=== PATIENT | female | born 1975 | race Caucasian/White ===

== ENCOUNTER 2016-08-17 09:41 | Inpatient (IN) | payer MEDICAID ==
[~2016-08-17] VITALS: Ht 165.1 cm; Wt 93.9 kg
[2016-08-17 09:59] VITALS: BP 134/91; PULSE 75; Ht 165.1 cm; Wt 93.9 kg
[2016-08-17] MEDS ORDERED: PRENAT PO (10:01)
[2016-08-17 10:25] LABS: ADD SCAN DIFF NO
[2016-08-17 10:29] LABS: BASOPHILS % 0.4 % (0.0-2.0); EOSINOPHILS # 0.1 10^3/ul (0.0-0.5); EOSINOPHILS % 1.3 % (0.0-7.0); HEMATOCRIT 32.5 % (37.0-47.0); HEMOGLOBIN 11.5 g/dl (12.0-16.0); LYMPHOCYTES # 1.5 10^3/ul (0.8-2.9); LYMPHOCYTES % 20.1 % (15.0-51.0); MEAN CORPUSCULAR HGB CONC 35.4 g/dl (32.0-37.0); MEAN CORPUSCULAR VOLUME 90.5 fl (82.0-101.0); MONOCYTE # 0.4 10^3/ul (0.3-0.9); MONOCYTES % 5.6 % (0.0-11.0); NEUTROPHIL # 5.5 10^3/ul (1.6-7.5); NEUTROPHILS % 71.9 % (39.0-77.0); PLATELET COUNT 248 10^3/UL (140-415); RED BLOOD COUNT 3.59 10^6/ul (4.20-5.40); RED CELL DISTRIBUTION WIDTH 13.3 % (11.5-14.5); WHITE BLOOD COUNT 7.7 10^3/ul (4.8-10.8)
[2016-08-17 10:32] LABS: ADD UMIC YES; UR ASCORBIC ACID 20 mg/dL (NEGATIVE); UR BACTERIA FEW /HPF (NONE SEEN); UR BILIRUBIN (Dip) NEGATIVE (NEGATIVE); UR BLOOD (Dip) 1+ mg/dL (NEGATIVE); UR CLARITY CLOUDY (CLEAR); UR COLOR AMBER (YELLOW); UR GLUCOSE (Dip) NEGATIVE (NEGATIVE); UR KETONES (Dip) NEGATIVE (NEGATIVE); UR LEUKOCYTE ESTERASE (Dip) 3+ Leu/ul (NEGATIVE); UR MUCUS MANY /HPF (NONE SEEN); UR NITRITE (Dip) NEGATIVE (NEGATIVE); UR RBC 3 /HPF (0-5); UR SPECIFIC GRAVITY (Dip) 1.023 (1.003-1.030); UR SQUAMOUS EPITHELIAL CELL MANY /HPF (FEW); UR TOTAL PROTEIN (Dip) 1+ mg/dl (NEGATIVE); UR UROBILINOGEN (Dip) NEGATIVE (NEGATIVE)
[2016-08-17 10:44] LABS: ALBUMIN 4.1 g/dl (3.3-4.9); ALBUMIN/GLOBULIN RATIO 1.41; BILIRUBIN,INDIRECT 0.2 mg/dl (0-1.1); BILIRUBIN,TOTAL 0.2 mg/dl (0.2-1.3); CALCIUM 9.7 mg/dl (8.4-10.2); CREATININE 0.62 mg/dl (0.44-1.00); POTASSIUM 3.6 mmol/L (3.5-5.1); URIC ACID 6.1 mg/dl (3.1-7.9)
[2016-08-17 10:47] LABS: INR 0.92; PARTIAL THROMBOPLASTIN TIME 27.6 Sec (25.0-35.0); PROTIME 12.4 Sec (12.2-14.2)
--- NOTE | 2016-08-17 11:41 | RADRPT ---
PROCEDURE: US OB biophysical profile. CLINICAL INDICATION: evaluation TECHNIQUE: Multiple sonographic images of the pelvis were obtained. The images were reviewed on a PACS workstation. COMPARISON: No prior studies are available for comparison. FINDINGS: There is a single viable intrauterine gestation. Cardiac activity is present with 134 beats per min micheal. There is a vertex presentation. The placenta is anterior. There is no evidence of placental abruption. There is a normal amount of amniotic fluid with an ROXIE = 10.0 cm. Biophysical profile: movement 2/2 tone 2/2. breathing 2/2 ROXIE 2/2 Total 10/03 RPTAT: AA . IMPRESSION: Normal biophysical profile. Physician Rom Date Time Electronically viewed and signed by Physician Rom on 08/17/2016 11:41 /
--- NOTE | 2016-08-17 12:39 | HP ---
Date/Time of Note Date/Time of Note DATE: 08/17/16 TIME: 12:20 OB - History Hx of Present Free Text/Dictation 41 years old female 4 para 3 EDC of October 06, 2016 32 weeks6/7 days has been evaluated in the triage unit to rule out - induced hypertension her blood pressures running 136/77 the highest 144/92 she has no complaint of headache blurry vision epigastric pain, her laboratory work , CMP, liver enzyme are within normal uric acid 6. platelet 248,000 ,urine 1+ protein 3+ leukocyte esterase WBC 10 ,her biophysical profile 10/03 with ROXIE 10 she is being admitted to the antepartum unit for further evaluation and treatment for suspected -induced hypertension 24 hours urine collection for protein and creatinine clearance ordered This patient has been under the care of the [facility] the only pertinent finding in her record, during the last 2 visit blood pressure running 130s over 80 which was higher then earlier visit Chief Complaint: Workup for PIH Estimated Due Date: Oct 06, 2016 : 4 Para: 3 Care: Good Care Ultrasounds: Normal mid trimester US Obstetrical Complications: Gestational Hypertension Medical Complications: None Past Family/Social History * Past Medical, Surgical, Family and Obstetric Histories reviewed from chart. Rubella: immune RPR/VDRL: Negative GBS Status: Unknown HBsAG: Negative OB Admission Exam Vital Signs Vital Signs Vital Signs Date Time Temp Pulse Resp B/P Pulse Ox O2 Delivery O2 Flow Rate FiO2 08/17/16 09:59 98.4 75 134/91 Physical Exam HEENT: WNL Heart: Rhythm Normal Lungs: Clear, Equal Abdomen: WNL Extremities: Normal Reflexes: Normal Cervical Dilatation: None Heart Rate: 130's Accelerations: Accelerations Present Last 72 hours Lab Results CBC & BMP 08/17/16 10:10 Liver Function Test 08/17/16 10:10 Alanine Aminotransferase (ALT/SGPT) 31 Albumin 4.1 Alkaline Phosphatase 131 H Aspartate Amino Transf (AST/SGOT) 26 Direct Bilirubin 0.00 Total Protein 7.0 OB Assessment/Plan Reason for admission: other (Suspected -induced hypertension ) Plan: Expectant Management, Other (Workup to rule out -induced) ANALI DOBBINS MD Aug 17, 2016 12:32
[2016-08-17 13:32] LABS: ADD UMIC NO; UR ASCORBIC ACID NEGATIVE (NEGATIVE); UR BILIRUBIN (Dip) NEGATIVE (NEGATIVE); UR BLOOD (Dip) NEGATIVE (NEGATIVE); UR CLARITY SLIGHTLY CLOUDY (CLEAR); UR COLOR YELLOW (YELLOW); UR GLUCOSE (Dip) NEGATIVE (NEGATIVE); UR KETONES (Dip) NEGATIVE (NEGATIVE); UR LEUKOCYTE ESTERASE (Dip) NEGATIVE Leu/ul (NEGATIVE); UR MUCUS FEW /HPF (NONE SEEN); UR NITRITE (Dip) NEGATIVE (NEGATIVE); UR RBC 4 /HPF (0-5); UR SPECIFIC GRAVITY (Dip) 1.018 (1.003-1.030); UR SQUAMOUS EPITHELIAL CELL FEW /HPF (FEW); UR TOTAL PROTEIN (Dip) NEGATIVE (NEGATIVE); UR UROBILINOGEN (Dip) NEGATIVE (NEGATIVE)
[2016-08-17] MEDS: AL HYDROX/MG HYDROX/SIMETH 30 ML CUP PO PRN ×2 (15:55→21:36)
[2016-08-18] MEDS: AL HYDROX/MG HYDROX/SIMETH 30 ML CUP PO PRN (08:53)
[2016-08-18] MEDS: MULTIVIT/MIN/FOLATE/IRON/PREN TAB PO SCH (08:53)
[2016-08-18 14:01] LABS: SCRET 0.62 mg/dl (0.44-1.00)
--- NOTE | 2016-08-18 14:06 | PERINOTE ---
Date/Time of Note Date/Time of Note DATE: 08/18/16 TIME: 13:50 Assessment/Recommendations Other Assessments IUP New onset hypertension in , with one severe-range BP. Recommendations: Would obtain an ultrasound for growth given maternal hypertension Awaiting 24 hour urine results If the patient has another severe-range BP (above 160 or above 110), she meets case definition of severe disease. Then: Could consider labetalol 200mg PO BID to prevent severe BPs Would repeat blood work every 1-2 days Would deliver earlier for evidence of maternal organ involvement (other severe features), intolerance Would consider delivery at 34 weeks if stable until that time If the patient does not meet criteria for severe, would deliver at 37 weeks GA. Would follow with labs weekly. If she is discharged I would repeat the labs weekly OB Subjective Free Text/Dictaton Patient admitted due to elevated BP. Blood work in the hospital has been normal , 24 hour urine for protein is pending. BP: --at first Ob visit was 119/78 --Highest 163/95, 141/98 --current 141/97 HD# 2 IUP @ 32W5D Complaints/Overnight events Denies headache, visual changes, abdominal or chest pain Current Medications Current Medications Al Hydrox/Mg Hydrox/Simethicone (Mag-Al Plus) 30 ml Q4H PRN PO GASTROINTESTINAL UPSET Last administered on 08/18/16 08:53; Admin Dose 30 ML; Start 08/17/16 at 16:00 Acetaminophen (Tylenol Tab) 650 mg Q4H PRN PO PAIN AND OR ELEVATED TEMP; Start 08/17/16 at 16:00 Prenat Multivit/ Supply Chain Vice President/Iron/Folic Ac ( S) 1 tab DAILY PO Last administered on 08/18/16 08:53; Admin Dose 1 TAB; Start 08/18/16 at 09:00 Past Medical History Medical History: no pertinent history Surgical History: no surgical history [employer] History: no pertinent [employer] TE[employer]ER history Para: 3 : 4 LMP (Females 10-50): Family History Significant Family History: no pertinent family hx Social History Smoker: non-smoker (Note that papers state that patient is a smoker) Alcohol: none Drugs: none OB Admission Exam Physical Exam Vitals: Vital Signs Date Time Temp Pulse Resp B/P Pulse Ox O2 Delivery O2 Flow Rate FiO2 08/17/16 09:59 98.4 75 134/91 Heart: Rhythm Normal Lungs: Clear Abdomen: WNL Extremities: Normal Reflexes: Normal Heart Rate: 130's Accelerations: Accelerations Present Decelerations: No Decelerations Varibility: Moderate Contractions on Admission: None Last 72 hours Lab Results CBC & BMP 08/17/16 10:10 Liver Function Test 08/17/16 10:10 Alanine Aminotransferase (ALT/SGPT) 31 Albumin 4.1 Alkaline Phosphatase 131 H Aspartate Amino Transf (AST/SGOT) 26 Direct Bilirubin 0.00 Total Protein 7.0 Copies To: CC: ANALI DOBBINS MD, MARIE H MD Aug 18, 2016 14:05
--- NOTE | 2016-08-18 16:25 | RADRPT ---
PROCEDURE: Obstetrical ultrasound CLINICAL INDICATION: CHRONIC HTN TECHNIQUE: Multiple sonographic images of the pelvis were obtained. The images were reviewed on a PACS workstation. COMPARISON: Obstetrical ultrasound from 08/17/2016 FINDINGS: The cervix is not well visualized. There is a single viable intrauterine gestation. Cardiac activity is present with 141 beats per minute. There is a vertex presentation. The placenta is anterior. There is no evidence for an abruption or placenta previa. There is a subjectively normal amount of amniotic fluid. Measurements were made in order to determine age. The results are as follows (cm): BPD =8.37 HC =29.39 AC =29.74 FL =6.53 Estimated gestational age by ultrasound of approximately 33 weeks, 3 days. The estimated date of delivery by ultrasound is 10/03/2016. Estimated gestational age by LMP of approximately 33 weeks, 0 days. The estimated date of delivery by LMP is 10/06/2016. EFW = 2223 grams (58th percentile) IMPRESSION: Single viable intrauterine gestation of approximately 33 weeks, 3 days . The estimated date of delivery is 10/03/2016 . Dating by ultrasound is within 3 days of dating by LMP. Cephalic presentation. Estimated weight is in the 58 percentile. Anterior placenta without evidence of an abruption. RPTAT: EE Physician Rom Date Time Electronically viewed and signed by Physician Rom on 08/18/2016 16:24 RA/
--- NOTE | 2016-08-18 17:36 | QN ---
Documentation Comment Afebrile patient resting in bed no complaint of headache blurry vision or epigastric pain her blood pressure has been running in the 150s over 90s has been seen by the perinatology recommended labetalol 200 mg twice a day her imaging report indicates normal weight for gestational age no sign of IUGR will continue close observation with repeat PIH panel for the morning, 24 hours urine collection for protein report, total protein was 399 that qualifies her for -induced hypertension superimposed chronic hypertension. ANALI DOBBINS MD Aug 18, 2016 17:36
[2016-08-18] MEDS: LABETALOL 200 MG TAB PO SCH (20:44)
[2016-08-19 07:44] LABS: ALBUMIN/GLOBULIN RATIO 1.37; BILIRUBIN,INDIRECT 0.3 mg/dl (0-1.1); BILIRUBIN,TOTAL 0.3 mg/dl (0.2-1.3); CALCIUM 9.5 mg/dl (8.4-10.2); CREATININE 0.69 mg/dl (0.44-1.00); POTASSIUM 3.9 mmol/L (3.5-5.1); TOTAL PROTEIN 6.9 g/dl (6.1-8.1)
[2016-08-19] MEDS: LABETALOL 200 MG TAB PO SCH ×2 (09:02→20:47)
[2016-08-19] MEDS: MULTIVIT/MIN/FOLATE/IRON/PREN TAB PO SCH (09:02)
--- NOTE | 2016-08-19 10:22 | QN ---
Documentation Comment Resting in bed blood pressure 116/67 she is on labetalol 200 mg twice daily, no complaint of headache blurry vision epigastric will continue present treatment if blood pressure stays within this range considering a.m. discharge ANALI DOBBINS MD Aug 19, 2016 10:22
[2016-08-19] MEDS: ACETAMINOPHEN 325 MG TAB PO PRN ×2 (10:31→18:10)
[2016-08-19] MEDS: PANTOPRAZOLE (EC) 40 MG TAB PO SCH (10:35)
--- NOTE | 2016-08-19 15:39 | PERINOTE ---
Date/Time of Note Date/Time of Note DATE: 08/19/16 TIME: 15:33 Assessment/Recommendations Other Assessments Intrauterine at 33 weeks and 1 day of gestation Elevated blood pressures likely due to preeclampsia, without severe features at this time Recommendations: I would treat this woman as preeclampsia without severe features, including testing twice weekly and weekly evaluations of her preeclampsia laboratory values. I would deliver her at 37 weeks of gestation, earlier if or maternal issues arise OB Subjective Free Text/Dictaton The patient is admitted with elevated blood pressures in the clinic, for consideration of possible preeclampsia HD# 3 IUP @ 33W1D Complaints/Overnight events Patient's current blood pressure is 117/63, maximum blood pressure in the last 24 hours 152/102. The patient denies headache visual changes chest or abdominal pain. Ultrasound performed in this admission reveals an estimated weight of 2223 g which is 15th percentile for gestational age. 24-hour urine protein excretion was elevated at 399 mg in 24-hour period of a laboratory evaluation is unremarkable. Current Medications Current Medications Al Hydrox/Mg Hydrox/Simethicone (Mag-Al Plus) 30 ml Q4H PRN PO GASTROINTESTINAL UPSET Last administered on 08/18/16 08:53; Admin Dose 30 ML; Start 08/17/16 at 16:00 Acetaminophen (Tylenol Tab) 650 mg Q4H PRN PO PAIN AND OR ELEVATED TEMP Last administered on 08/19/16 10:31; Admin Dose 650 MG; Start 08/17/16 at 16:00 Prenat Multivit/ Supervisor Gelatin Plant/Iron/Folic Ac ( S) 1 tab DAILY PO Last administered on 08/19/16 09:02; Admin Dose 1 TAB; Start 08/18/16 at 09:00 Labetalol HCl (Normodyne) 200 mg BID PO Last administered on 08/19/16 09:02; Admin Dose 200 MG; Start 08/18/16 at 21:00 Pantoprazole (Protonix Tab) 40 mg DAILY@06 PO Last administered on 08/19/16 10 :35; Admin Dose 40 MG; Start 08/19/16 at 11:00 OB Admission Exam Physical Exam Vitals: Vital Signs Date Time Temp Pulse Resp B/P Pulse Ox O2 Delivery O2 Flow Rate FiO2 08/17/16 09:59 98.4 75 134/91 Heart Rate: 130's Accelerations: Accelerations Present Decelerations: No Decelerations Varibility: Moderate Contractions on Admission: None Last 72 hours Lab Results CBC & BMP 08/17/16 10:10 08/19/16 06:01 Liver Function Test 08/17/16 10:10 08/19/16 06:01 Alanine Aminotransferase (ALT/SGPT) 31 36 Albumin 4.1 4.0 Alkaline Phosphatase 131 H 135 H Aspartate Amino Transf (AST/SGOT) 26 30 Direct Bilirubin 0.00 0.00 Total Protein 7.0 6.9 Copies To: CC: ANALI DOBBINS MD, MARIE H MD Aug 19, 2016 15:39
[2016-08-19] MEDS: AL HYDROX/MG HYDROX/SIMETH 30 ML CUP PO PRN (18:13)
[2016-08-20] MEDS: PANTOPRAZOLE (EC) 40 MG TAB PO SCH (06:35)
[2016-08-20] MEDS: LABETALOL 200 MG TAB PO SCH (09:09)
[2016-08-20] MEDS: MULTIVIT/MIN/FOLATE/IRON/PREN TAB PO SCH (09:09)
--- NOTE | 2016-08-20 11:14 | PDOCDIS ---
Discharge Instructions CONDITION Patient Condition: Good HOME CARE INSTRUCTIONS: Diet Instructions: Reduced Sodium ACTIVITY: Activity Restrictions: Rest between Activity No Sexual Activity Bathing Restrictions: ShowerActivity Restrictions Comment: More bedrest low- salt diet appointment office in 2 day FOLLOW UP/APPOINTMENTS Follow-up Plan Patient is being discharged home with prescription of Procardia 20mg every 6 hours to make appointment to be seen in the office in 2 days ANALI DOBBINS MD Aug 20, 2016 11:14
--- NOTE | 2016-08-20 11:32 | DS ---
Date/Time of Note Date/Time of Note DATE: 08/20/16 TIME: 11:22 Discharge Summary Admission/Discharge Info Admit Date/Time Aug 17, 2016 at 12:20 Discharge Date/Time August 20, 2016 at 1155 Discharge Diagnosis 35 weeks and 2 days diagnosed with mild preeclampsia suggested by the perinatology follow-up as outpatient at the time of discharge her blood pressures were 108/68 120/73 and the last blood pressure taken at 1130 was 116/ 75 she is taking labetalol 200 mg twice daily will be discharged home with a prescription of labetalol 200 mg twice daily and requested to make appointment to be seen at the office in 2 days Patient Condition: Good Procedures Treatment for mild -induced hypertension Hx of Present Illness 35 weeks 2 days complicated with mild preeclampsia Hospital Course Satisfactory responded well to the treatment Home Meds Reported Medications Multivit/Min/Fol Ac/Iron/Pren* ( S*) 1 Tab Tab, 1 TAB PO DAILY, TAB 08/17/16 Follow-up Plan To continue taking labetalol 200 mg twice daily to make appointment to be seen in the office in 2 days Primary Care Provider Care Physician No Primary Time spent on discharge: < 30 minutes ANALI DOBBINS MD Aug 20, 2016 11:32
== END 2016-08-20 12:02 | disposition home or self-care (01) | DRG 781 ==
LOC: OBT 09:41 → L-D 09:42 → OBG 12:20 → OBT 12:20
PROVIDERS: ADMIT Obstetrics & Gynecology; ATTEND Obstetrics & Gynecology
DX: O14.03 Mild to moderate pre-eclampsia, third trimester (principal); Z3A.35 35 weeks gestation of pregnancy
CPT/HCPCS: 36415; 76815; 76818; 80053; 81001; 81003; 82575; 84156; 84560; 85025; 85384; 85610; 85730; 87086; G0463

== ENCOUNTER 2016-09-06 16:00 | Inpatient (IN) | payer MEDICAID ==
[~2016-09-06] VITALS: Ht 165.1 cm; Wt 93.2 kg
[~2016-09-06 16:00] MED LIST: PRENAT PO
[2016-09-06 16:32] VITALS: Ht 165.1 cm; Wt 93.2 kg
[2016-09-06 16:33] VITALS: BP 136/85; PULSE 69; RESP 16
[2016-09-06] MEDS ORDERED: LABE100T3 PO (16:35)
[2016-09-06 17:12] LABS: ADD SCAN DIFF NO
[2016-09-06 17:14] LABS: BASOPHILS % 0.5 % (0.0-2.0); EOSINOPHILS # 0.1 10^3/ul (0.0-0.5); EOSINOPHILS % 1.4 % (0.0-7.0); HEMOGLOBIN 11.3 g/dl (12.0-16.0); LYMPHOCYTES # 1.6 10^3/ul (0.8-2.9); LYMPHOCYTES % 24.1 % (15.0-51.0); MEAN CORPUSCULAR HEMOGLOBIN 31.7 pg (29.0-33.0); MEAN CORPUSCULAR HGB CONC 34.2 g/dl (32.0-37.0); MEAN CORPUSCULAR VOLUME 92.4 fl (82.0-101.0); MEAN PLATELET VOLUME 11.4 fl (7.4-10.4); MONOCYTE # 0.5 10^3/ul (0.3-0.9); MONOCYTES % 7.8 % (0.0-11.0); NEUTROPHIL # 4.3 10^3/ul (1.6-7.5); NEUTROPHILS % 65.7 % (39.0-77.0); PLATELET COUNT 218 10^3/UL (140-415); RED BLOOD COUNT 3.57 10^6/ul (4.20-5.40); RED CELL DISTRIBUTION WIDTH 13.5 % (11.5-14.5); WHITE BLOOD COUNT 6.6 10^3/ul (4.8-10.8)
[2016-09-06 17:31] LABS: INR 0.91; PARTIAL THROMBOPLASTIN TIME 27.6 Sec (25.0-35.0); PROTIME 12.2 Sec (12.2-14.2)
[2016-09-06 17:36] LABS: ALBUMIN/GLOBULIN RATIO 1.29; BILIRUBIN,INDIRECT 0.2 mg/dl (0-1.1); BILIRUBIN,TOTAL 0.2 mg/dl (0.2-1.3); CALCIUM 10.2 mg/dl (8.4-10.2); CREATININE 0.65 mg/dl (0.44-1.00); POTASSIUM 3.9 mmol/L (3.5-5.1); TOTAL PROTEIN 7.1 g/dl (6.1-8.1); URIC ACID 6.5 mg/dl (3.1-7.9)
[2016-09-06 18:45] LABS: ADD UMIC YES; UR ASCORBIC ACID 20 mg/dL (NEGATIVE); UR BILIRUBIN (Dip) NEGATIVE (NEGATIVE); UR BLOOD (Dip) NEGATIVE (NEGATIVE); UR CLARITY SLIGHTLY CLOUDY (CLEAR); UR COLOR YELLOW (YELLOW); UR GLUCOSE (Dip) NEGATIVE (NEGATIVE); UR KETONES (Dip) NEGATIVE (NEGATIVE); UR LEUKOCYTE ESTERASE (Dip) 2+ Leu/ul (NEGATIVE); UR NITRITE (Dip) NEGATIVE (NEGATIVE); UR RBC 1 /HPF (0-5); UR SPECIFIC GRAVITY (Dip) 1.021 (1.003-1.030); UR SQUAMOUS EPITHELIAL CELL FEW /HPF (FEW); UR TOTAL PROTEIN (Dip) 1+ mg/dl (NEGATIVE); UR UROBILINOGEN (Dip) NEGATIVE (NEGATIVE)
[2016-09-06] MEDS ORDERED: LACTATED RINGER'S 1,000 ML IV* SCH (19:00)
[2016-09-06] MEDS: BETAMET NA PHOS/AC(6 MG/ML) 5ML INJ IM SCH (19:04)
[2016-09-06] MEDS ORDERED: MAGNESIUM SULFATE 4 GM/100 ML 100 ML ONE (20:01)
[2016-09-06] MEDS ORDERED: LABETALOL HCL 20MG INJ ONE (20:01)
--- NOTE | 2016-09-06 20:07 | RADRPT ---
PROCEDURE: US OB. CLINICAL INDICATION: Size and dates , labor TECHNIQUE: Multiple sonographic images of the pelvis and gravid uterus were obtained. The images were reviewed on a PACS workstation. COMPARISON: 08/18/2016 FINDINGS: There is a single viable intrauterine gestation. Cardiac activity is present with 134 beats per min micheal. There is a vertex presentation. The placenta is anterior. There is no evidence for an abruption or placenta previa. There is a normal amount of amniotic fluid with an ROXIE = 12.5 cm. Measurements were made in order to determine age. The results are as follows: BPD =8.8 cm HC =31.8 cm AC =31.7 cm FL =7.0 cm Estimated gestational age of approximately 35 weeks and 5 days based on ultrasound measurements. Clinical age: 35 weeks and 5 days. The estimated date of delivery is 10/06/2016, based on ultrasound measurements. The EFW = 2739 g, 48.6%, based on LMP age. RPTAT: AA IMPRESSION: Single viable intrauterine gestation of approximately 35 weeks and 5 days based on ultrasound measu rements. .Nii Santiago MD, Date Time Electronically viewed and signed by .Nii Santiago MD, on 09/06/2016 20:06 .S/
[2016-09-06] MEDS ORDERED: LACTATED RINGER'S 1,000 ML IV SCH (20:11)
[2016-09-06] MEDS ORDERED: DEXTROSE 5%-LR 1,000 ML IV SCH (20:11)
[2016-09-06] MEDS ORDERED: LACTATED RINGER'S 1,000 ML IV PRN (20:14)
[2016-09-06] MEDS ORDERED: IBUPROFEN 600 MG TAB PO PRN (20:30)
[2016-09-06] MEDS ORDERED: MAGNESIUM SULFATE 4 GM/100 ML 100 ML IV SCH (20:30)
[2016-09-06] MEDS ORDERED: LIDOCAINE 1% (MPF) 30 ML INJ INJ PRN (20:30)
[2016-09-06] MEDS ORDERED: CARBOPROST 250 MCG INJ IM PRN (20:30)
[2016-09-06] MEDS ORDERED: ACETAMINOPHEN 325 MG TAB PO PRN (20:30)
[2016-09-06] MEDS ORDERED: OXYTOCIN 30 UNITS/LR 500 ML IV SCH ×2 (20:30)
[2016-09-06] MEDS ORDERED: LABETALOL HCL 20MG INJ IV PRN (20:30)
[2016-09-06] MEDS ORDERED: METHYLERGONOVINE 0.2 MG INJ IM PRN (20:30)
[2016-09-06] MEDS ORDERED: LABETALOL HCL 20MG INJ IV ONE (20:30)
[2016-09-06] MEDS ORDERED: OXYTOCIN 30 UNITS/LR 500 ML IV PRN (20:30)
[2016-09-06] MEDS ORDERED: CA GLUCONATE (GM) 10% 10ML INJ IV PRN (20:30)
[2016-09-06] MEDS ORDERED: MISOPROSTOL 200 MCG TAB PR PRN (20:30)
[2016-09-06] MEDS ORDERED: ACETAMINOPHEN/CODEINE #3 TAB PO PRN (20:30)
--- NOTE | 2016-09-06 20:39 | TRIAGE ---
OB Triage Datetime Report Generated by CPN: 09/06/2016 20:38 Datetime: 09/06/2016 20:00 Stage of : Labor Datetime: 09/06/2016 19:22 Comments: US TECH IN ROOM PERFORMING US Datetime: 09/06/2016 19:01 Pattern: Normal: <= 5 Contractions in 10 Minutes Resting Tone Emmons: Relaxed Contraction Comments: no uc Heart Rate FHR Baseline Rate: 145 Monitor Mode: External US Variability: Moderate 6-25 bpm Accelerations: 15X15 Decelerations: None Category: Category I Pain Presence: None/Denies Pain Type: N/A Datetime: 09/06/2016 18:00 Pattern: Normal: <= 5 Contractions in 10 Minutes Resting Tone Emmons: Relaxed Contraction Comments: no uc Heart Rate FHR Baseline Rate: 145 Monitor Mode: External US Variability: Moderate 6-25 bpm Accelerations: 15X15 Decelerations: None Category: Category I Pain Presence: None/Denies Pain Type: N/A Datetime: 09/06/2016 17:16 Pattern: Normal: <= 5 Contractions in 10 Minutes Resting Tone Emmons: Relaxed Contraction Comments: no uc Heart Rate FHR Baseline Rate: 145 Monitor Mode: External US Variability: Moderate 6-25 bpm Accelerations: 15X15 Decelerations: None Category: Category I Pain Presence: None/Denies Pain Type: N/A Datetime: 09/06/2016 16:30 Assessment Type: Triage Maternal Assessment Level of Consciousness: Fully Conscious DTR's/Clonus: DTRs 2+; No Clonus Headache: Denies Blurred Vision: No Respiratory Effort: Unlabored; Regular Rhythm; Equal Expansion Breath Sounds, Left: Clear and Equal Breath Sounds, Right: Clear and Equal Nausea/Vomiting: Denies RUQ Epigastric Pain: Denies Lower Extremities Edema: Bilateral Lower Extremities Degree: Pitting Upper Extremities Edema: None Degree: None Facial Edema: None Fall Risk Assessment History of Falling: (0) No Secondary Diagnosis: (0) No Ambulatory Aid: (0) Bedrest/Nurse Assist IV Therapy: (0) No Gait: (0) Normal/Bedrest/Immobile Mental Status: (0) Oriented to Own Ability Fall Score: 0 Fall Risk Score Definition: No Risk: No action required Datetime: 09/06/2016 16:27 Time of Arrival: 09/06/2016 16:00 EGA: 35.5 Arrived By: Ambulatory Arrived From: Dr. Branch Chief Complaint: PT. came to hospital from md office with prescription for pih lab works due to pr eclampsia, pt. deny headache, deny epigastric pain, deny vision disturbance at present, deny vag. bl eeding, deny srom Movement: Present Contractions: Denies/Absent Rupture of Membranes: Denies Vaginal Bleeding: None Vaginal Discharge: Denies Recent Sexual Intercouse: Denies Abdominal Trauma: Not Applicable Patient Complaints: None Time Provider Notified: 09/06/2016 16:37 Provider Notified: Initial Plan: pih lab work Datetime: 08/20/2016 10:18 Labor Evaluation Frequency: 0 Monitor Mode: External Duration (sec)2399: 0 Pattern: Normal: <= 5 Contractions in 10 Minutes Resting Tone Emmons: Relaxed Contraction Comments: DENIES FEELING ANY UC'S. ABDOMEN SOFT TO PALPATION Heart Rate FHR Baseline Rate: 130 Monitor Mode: External US FHR Baseline Changes: No Baseline Change Variability: Moderate 6-25 bpm Accelerations: 15X15 Decelerations: None Category: Category I Datetime: 08/20/2016 09:08 Assessment Type: Ongoing Assessment Maternal Assessment Level of Consciousness: Fully Conscious Maternal Assessment Level of Consciousness: Fully Conscious DTR's/Clonus: DTRs 2+; No Clonus Headache: Denies Headache: Denies Blurred Vision: No Blurred Vision: No Respiratory Effort: Unlabored; Regular Rhythm; Equal Expansion Nausea/Vomiting: Denies Nausea/Vomiting: Denies RUQ Epigastric Pain: Denies RUQ Epigastric Pain: Denies Lower Extremities Edema: None Upper Extremities Edema: None Facial Edema: None Facial Edema: None Fall Risk Assessment History of Falling: (0) No Secondary Diagnosis: (0) No Ambulatory Aid: (0) Bedrest/Nurse Assist IV Therapy: (0) No Gait: (0) Normal/Bedrest/Immobile Mental Status: (0) Oriented to Own Ability Fall Score: 0 Fall Risk Score Definition: No Risk: No action required Pain Assessment Pain Scale: 0 Pain Presence: None/Denies Pain Type: N/A Pain Goal: 0 Datetime: 08/20/2016 04:45 Temperature Route: Oral Pain Assessment Pain Scale: 0 Datetime: 08/19/2016 22:00 Labor Evaluation Frequency: 0 Monitor Mode: External Heart Rate FHR Baseline Rate: 140 Monitor Mode: External US FHR Baseline Changes: No Baseline Change Variability: Moderate 6-25 bpm Accelerations: 15X15 Decelerations: Variable Category: Category II Datetime: 08/19/2016 20:48 Comments: NST STARTED Datetime: 08/19/2016 19:50 Assessment Type: Ongoing Assessment Maternal Assessment Level of Consciousness: Fully Conscious DTR's/Clonus: DTRs 2+; No Clonus Headache: Denies Blurred Vision: No Respiratory Effort: Unlabored; Regular Rhythm; Equal Expansion Nausea/Vomiting: Denies RUQ Epigastric Pain: Denies Lower Extremities Edema: None Upper Extremities Edema: None Facial Edema: None Temperature Route: Oral Fall Risk Assessment History of Falling: (0) No Secondary Diagnosis: (0) No Ambulatory Aid: (0) Bedrest/Nurse Assist IV Therapy: (0) No Gait: (0) Normal/Bedrest/Immobile Mental Status: (0) Oriented to Own Ability Fall Score: 0 Fall Risk Score Definition: No Risk: No action required Pain Assessment Pain Scale: 0 Datetime: 08/19/2016 18:00 Stage of : Antepartum Maternal Assessment Level of Consciousness: Fully Conscious Headache: Denies Nausea/Vomiting: Denies RUQ Epigastric Pain: Denies Resting Tone Emmons: Relaxed Pain Presence: None/Denies Datetime: 08/19/2016 17:29 Maternal Assessment Level of Consciousness: Fully Conscious Headache: Denies Blurred Vision: No Respiratory Effort: Unlabored Nausea/Vomiting: Denies RUQ Epigastric Pain: Denies Pain Presence: Intermittent Datetime: 08/19/2016 17:00 Stage of : Antepartum Maternal Assessment Level of Consciousness: Fully Conscious Headache: Denies Nausea/Vomiting: Denies RUQ Epigastric Pain: Denies Resting Tone Emmons: Relaxed Pain Presence: None/Denies Datetime: 08/19/2016 16:03 Stage of : Antepartum Maternal Assessment Level of Consciousness: Fully Conscious Headache: Denies Nausea/Vomiting: Denies RUQ Epigastric Pain: Denies Resting Tone Emmons: Relaxed Pain Presence: None/Denies Datetime: 08/19/2016 15:01 Stage of : Antepartum Maternal Assessment Level of Consciousness: Fully Conscious Headache: Denies Nausea/Vomiting: Denies RUQ Epigastric Pain: Denies Resting Tone Emmons: Relaxed Pain Presence: None/Denies Datetime: 08/19/2016 14:54 Stage of : Antepartum Temperature Route: Oral Datetime: 08/19/2016 14:01 Stage of : Antepartum Maternal Assessment Level of Consciousness: Fully Conscious Headache: Denies Blurred Vision: No Respiratory Effort: Unlabored Nausea/Vomiting: Denies RUQ Epigastric Pain: Denies Resting Tone Emmons: Relaxed Pain Presence: None/Denies Datetime: 08/19/2016 13:00 Stage of : Antepartum Maternal Assessment Level of Consciousness: Fully Conscious Headache: Denies Nausea/Vomiting: Denies RUQ Epigastric Pain: Denies Resting Tone Emmons: Relaxed Pain Presence: None/Denies Datetime: 08/19/2016 12:00 Stage of : Antepartum Maternal Assessment Level of Consciousness: Fully Conscious Headache: Denies Nausea/Vomiting: Denies RUQ Epigastric Pain: Denies Resting Tone Emmons: Relaxed Pain Presence: None/Denies Datetime: 08/19/2016 11:00 Stage of : Antepartum Maternal Assessment Level of Consciousness: Fully Conscious Headache: Denies Nausea/Vomiting: Denies RUQ Epigastric Pain: Denies Resting Tone Emmons: Relaxed Comments: nst q shift Pain Presence: None/Denies Datetime: 08/19/2016 09:42 Stage of : Antepartum Datetime: 08/19/2016 09:41 Maternal Assessment Level of Consciousness: Fully Conscious Headache: Denies Blurred Vision: No Nausea/Vomiting: Denies RUQ Epigastric Pain: Denies Pain Presence: None/Denies Datetime: 08/19/2016 09:00 Stage of : Antepartum Maternal Assessment Level of Consciousness: Fully Conscious Headache: Denies Nausea/Vomiting: Denies RUQ Epigastric Pain: Denies Labor Evaluation Frequency: 0/hr Monitor Mode: External Resting Tone Emmons: Relaxed Heart Rate FHR Baseline Rate: 130 Monitor Mode: External US Variability: Moderate 6-25 bpm Accelerations: 15X15 Decelerations: None Pain Presence: None/Denies Datetime: 08/19/2016 08:58 Category: Category I Pain Presence: None/Denies Datetime: 08/19/2016 08:00 Stage of : Antepartum Maternal Assessment Level of Consciousness: Fully Conscious Headache: Denies Nausea/Vomiting: Denies RUQ Epigastric Pain: Denies Labor Evaluation Frequency: 0/hr Monitor Mode: External Resting Tone Emmons: Relaxed Heart Rate FHR Baseline Rate: 130 Monitor Mode: External US Variability: Moderate 6-25 bpm Accelerations: 15X15 Decelerations: None Pain Presence: None/Denies Datetime: 08/19/2016 07:44 Stage of : Antepartum Datetime: 08/19/2016 07:43 Stage of : Antepartum Maternal Assessment Level of Consciousness: Fully Conscious DTR's/Clonus: DTRs 2+ Headache: Denies Blurred Vision: No Respiratory Effort: Unlabored Breath Sounds, Left: Clear and Equal Breath Sounds, Right: Clear and Equal Nausea/Vomiting: Denies RUQ Epigastric Pain: Denies Facial Edema: None Labor Evaluation Frequency: 0/hr Monitor Mode: External Resting Tone Emmons: Relaxed Contraction Comments: pt. denies any uc's Heart Rate FHR Baseline Rate: 130 Monitor Mode: External US Variability: Moderate 6-25 bpm Accelerations: 15X15 Decelerations: None Category: Category I Pain Presence: None/Denies Datetime: 08/19/2016 07:34 Assessment Type: Ongoing Assessment Maternal Assessment Level of Consciousness: Fully Conscious DTR's/Clonus: DTRs 2+; No Clonus Headache: Denies Blurred Vision: No Respiratory Effort: Unlabored; Regular Rhythm; Equal Expansion Nausea/Vomiting: Denies RUQ Epigastric Pain: Denies Lower Extremities Edema: None Upper Extremities Edema: None Facial Edema: None Fall Risk Assessment History of Falling: (0) No Secondary Diagnosis: (0) No Ambulatory Aid: (0) Bedrest/Nurse Assist IV Therapy: (0) No Gait: (0) Normal/Bedrest/Immobile Mental Status: (0) Oriented to Own Ability Fall Score: 0 Fall Risk Score Definition: No Risk: No action required Datetime: 08/19/2016 07:00 Labor Evaluation Frequency: 0 Monitor Mode: External Heart Rate FHR Baseline Rate: 135 Monitor Mode: External US Comments: POOR QUAKITY WHILE ON HER SIDE SLEEPING Datetime: 08/19/2016 06:00 Labor Evaluation Frequency: 0 Monitor Mode: External Heart Rate FHR Baseline Rate: 130 Monitor Mode: External US FHR Baseline Changes: No Baseline Change Variability: Moderate 6-25 bpm Accelerations: 15X15 Decelerations: None Category: Category I Datetime: 08/19/2016 05:00 Labor Evaluation Frequency: 0 Monitor Mode: External Heart Rate FHR Baseline Rate: 130 Monitor Mode: External US FHR Baseline Changes: No Baseline Change Variability: Moderate 6-25 bpm Accelerations: 15X15 Decelerations: None Category: Category I Datetime: 08/19/2016 04:00 Labor Evaluation Frequency: X1 Monitor Mode: External Duration (sec)2399: 80 Quality: Mild Resting Tone Emmons: Relaxed Heart Rate FHR Baseline Rate: 130 Monitor Mode: External US FHR Baseline Changes: No Baseline Change Variability: Moderate 6-25 bpm Accelerations: 15X15 Decelerations: None Category: Category I Datetime: 08/19/2016 03:00 Labor Evaluation Frequency: 0 Monitor Mode: External Heart Rate FHR Baseline Rate: 130 Monitor Mode: External US FHR Baseline Changes: No Baseline Change Variability: Moderate 6-25 bpm Accelerations: 15X15 Decelerations: None Category: Category I Datetime: 08/19/2016 02:00 Labor Evaluation Frequency: 0 Monitor Mode: External Heart Rate FHR Baseline Rate: 130 Monitor Mode: External US FHR Baseline Changes: No Baseline Change Variability: Moderate 6-25 bpm Accelerations: 15X15 Decelerations: None Category: Category I Datetime: 08/19/2016 01:08 Temperature Route: Oral Pain Assessment Pain Scale: 0 Datetime: 08/19/2016 01:00 Labor Evaluation Frequency: 0 Monitor Mode: External Heart Rate FHR Baseline Rate: 130 Monitor Mode: External US FHR Baseline Changes: No Baseline Change Variability: Moderate 6-25 bpm Accelerations: 15X15 Decelerations: None Category: Category I Datetime: 08/19/2016 00:00 Labor Evaluation Frequency: 0 Monitor Mode: External Heart Rate FHR Baseline Rate: 140 Monitor Mode: External US FHR Baseline Changes: No Baseline Change Variability: Moderate 6-25 bpm Accelerations: 15X15 Decelerations: Variable Category: Category II Datetime: 08/18/2016 23:00 Labor Evaluation Frequency: 0 Monitor Mode: External Resting Tone Emmons: Relaxed Heart Rate FHR Baseline Rate: 135 Monitor Mode: External US FHR Baseline Changes: No Baseline Change Variability: Moderate 6-25 bpm Comments: Periods of loss of FHR contact d/t pt self-repositioning. Datetime: 08/18/2016 22:39 Maternal Assessment Level of Consciousness: Fully Conscious Headache: Denies Blurred Vision: No Nausea/Vomiting: Denies RUQ Epigastric Pain: Denies Resting Tone Emmons: Relaxed Pain Assessment Pain Scale: 0 Pain Presence: None/Denies Pain Type: N/A Datetime: 08/18/2016 22:00 Labor Evaluation Frequency: 0 Monitor Mode: External Heart Rate FHR Baseline Rate: 130 Monitor Mode: External US FHR Baseline Changes: No Baseline Change Variability: Moderate 6-25 bpm Accelerations: 15X15 Decelerations: None Category: Category I Datetime: 08/18/2016 21:00 Labor Evaluation Frequency: 0 Monitor Mode: External Heart Rate FHR Baseline Rate: 130 Monitor Mode: External US FHR Baseline Changes: No Baseline Change Variability: Moderate 6-25 bpm Accelerations: 15X15 Decelerations: None Category: Category I Datetime: 08/18/2016 20:00 Labor Evaluation Frequency: 0 Monitor Mode: External Heart Rate FHR Baseline Rate: 140 Monitor Mode: External US FHR Baseline Changes: No Baseline Change Variability: Moderate 6-25 bpm Accelerations: 15X15 Decelerations: None Category: Category I Datetime: 08/18/2016 19:25 Stage of : Antepartum Assessment Type: Ongoing Assessment Maternal Assessment Level of Consciousness: Fully Conscious DTR's/Clonus: DTRs 2+; No Clonus Headache: Denies Blurred Vision: No Respiratory Effort: Unlabored; Regular Rhythm; Equal Expansion Nausea/Vomiting: Denies RUQ Epigastric Pain: Denies Lower Extremities Edema: None Upper Extremities Edema: None Facial Edema: None Temperature Route: Oral Fall Risk Assessment History of Falling: (0) No Secondary Diagnosis: (0) No Ambulatory Aid: (0) Bedrest/Nurse Assist IV Therapy: (0) No Gait: (0) Normal/Bedrest/Immobile Mental Status: (0) Oriented to Own Ability Fall Score: 0 Fall Risk Score Definition: No Risk: No action required Pain Assessment Pain Scale: 0 Pain Goal: 4 Datetime: 08/18/2016 19:07 Labor Evaluation Frequency: 0 Monitor Mode: External Pattern: Normal: <= 5 Contractions in 10 Minutes Resting Tone Emmons: Relaxed Heart Rate FHR Baseline Rate: 130 Monitor Mode: External US FHR Baseline Changes: No Baseline Change Variability: Moderate 6-25 bpm Accelerations: 15X15 Decelerations: None Category: Category I Datetime: 08/18/2016 18:19 Labor Evaluation Frequency: 0 Monitor Mode: External Pattern: Normal: <= 5 Contractions in 10 Minutes Resting Tone Emmons: Relaxed Heart Rate FHR Baseline Rate: 130 Monitor Mode: External US FHR Baseline Changes: No Baseline Change Variability: Moderate 6-25 bpm Accelerations: 15X15 Decelerations: None Category: Category I Datetime: 08/18/2016 16:07 Labor Evaluation Frequency: 0 Monitor Mode: External Pattern: Normal: <= 5 Contractions in 10 Minutes Resting Tone Emmons: Relaxed Heart Rate FHR Baseline Rate: 135 Monitor Mode: External US FHR Baseline Changes: No Baseline Change Variability: Moderate 6-25 bpm Accelerations: 15X15 Decelerations: None Category: Category I Datetime: 08/18/2016 15:07 Labor Evaluation Frequency: 0 Monitor Mode: External Pattern: Normal: <= 5 Contractions in 10 Minutes Resting Tone Emmons: Relaxed Datetime: 08/18/2016 14:07 Labor Evaluation Frequency: 0 Monitor Mode: External Pattern: Normal: <= 5 Contractions in 10 Minutes Resting Tone Emmons: Relaxed Datetime: 08/18/2016 13:07 Labor Evaluation Frequency: 0 Monitor Mode: External Pattern: Normal: <= 5 Contractions in 10 Minutes Resting Tone Emmons: Relaxed Heart Rate FHR Baseline Rate: 130 Monitor Mode: External US FHR Baseline Changes: No Baseline Change Variability: Moderate 6-25 bpm Accelerations: 15X15 Decelerations: None Category: Category I Datetime: 08/18/2016 12:07 Labor Evaluation Frequency: 0 Monitor Mode: External Pattern: Normal: <= 5 Contractions in 10 Minutes Resting Tone Emmons: Relaxed Heart Rate FHR Baseline Rate: 130 Monitor Mode: External US FHR Baseline Changes: No Baseline Change Variability: Moderate 6-25 bpm Accelerations: 15X15 Decelerations: None Category: Category I Datetime: 08/18/2016 10:07 Labor Evaluation Frequency: 0 Monitor Mode: External Pattern: Normal: <= 5 Contractions in 10 Minutes Resting Tone Emmons: Relaxed Datetime: 08/18/2016 09:01 Labor Evaluation Frequency: 0 Monitor Mode: External Pattern: Normal: <= 5 Contractions in 10 Minutes Resting Tone Emmons: Relaxed Heart Rate FHR Baseline Rate: 130 Monitor Mode: External US FHR Baseline Changes: No Baseline Change Variability: Moderate 6-25 bpm Accelerations: 15X15 Decelerations: Variable Category: Category I Datetime: 08/18/2016 08:01 Assessment Type: Ongoing Assessment Maternal Assessment Level of Consciousness: Fully Conscious DTR's/Clonus: DTRs 2+; No Clonus Headache: Denies Blurred Vision: No Respiratory Effort: Unlabored; Regular Rhythm; Equal Expansion Breath Sounds, Left: Clear and Equal Breath Sounds, Right: Clear and Equal Nausea/Vomiting: Denies RUQ Epigastric Pain: Denies Facial Edema: None Fall Risk Assessment History of Falling: (0) No Secondary Diagnosis: (0) No Ambulatory Aid: (0) Bedrest/Nurse Assist Gait: (0) Normal/Bedrest/Immobile Mental Status: (0) Oriented to Own Ability Labor Evaluation Frequency: 0 Monitor Mode: External Pattern: Normal: <= 5 Contractions in 10 Minutes Resting Tone Emmons: Relaxed Heart Rate FHR Baseline Rate: 130 Monitor Mode: External US FHR Baseline Changes: No Baseline Change Variability: Moderate 6-25 bpm Accelerations: 15X15 Decelerations: None Category: Category I Datetime: 08/18/2016 06:30 Labor Evaluation Frequency: x1 Monitor Mode: External Duration (sec)2399: 50 Quality: Mild Resting Tone Emmons: Relaxed Heart Rate FHR Baseline Rate: 135 Monitor Mode: External US Variability: Moderate 6-25 bpm Accelerations: 15X15 Decelerations: None Category: Category I Pain Presence: None/Denies Pain Type: N/A Datetime: 08/18/2016 05:30 Labor Evaluation Frequency: x5 Monitor Mode: External Duration (sec)2399: 40-50 Quality: Mild Resting Tone Emmons: Relaxed Heart Rate FHR Baseline Rate: 135 Monitor Mode: External US Variability: Moderate 6-25 bpm Accelerations: 15X15 Decelerations: None Category: Category I Datetime: 08/18/2016 05:24 Temperature Route: Oral Pain Presence: None/Denies Datetime: 08/18/2016 04:30 Labor Evaluation Frequency: x4 Monitor Mode: External Duration (sec)2399: 40-50 Quality: Mild Resting Tone Emmons: Relaxed Heart Rate FHR Baseline Rate: 130 Monitor Mode: External US Variability: Moderate 6-25 bpm Accelerations: 15X15 Decelerations: None Category: Category I Datetime: 08/18/2016 03:30 Labor Evaluation Frequency: x1 Monitor Mode: External Duration (sec)2399: 50 Quality: Mild Resting Tone Emmons: Relaxed Heart Rate FHR Baseline Rate: 130 Monitor Mode: External US Variability: Moderate 6-25 bpm Accelerations: Prolonged Decelerations: None Category: Category I Datetime: 08/18/2016 02:30 Labor Evaluation Frequency: x3 Monitor Mode: External Duration (sec)2399: 40-60 Quality: Mild Resting Tone Emmons: Relaxed Heart Rate FHR Baseline Rate: 130 Monitor Mode: External US Variability: Moderate 6-25 bpm Accelerations: 15X15 Decelerations: None Category: Category I Datetime: 08/18/2016 01:30 Labor Evaluation Frequency: 0 Monitor Mode: External Duration (sec)2399: denies Resting Tone Emmons: Relaxed Heart Rate FHR Baseline Rate: 130 Monitor Mode: External US Variability: Moderate 6-25 bpm Accelerations: 15X15 Decelerations: None Category: Category I Pain Presence: None/Denies Pain Type: N/A Datetime: 08/18/2016 00:30 Labor Evaluation Frequency: 0 Monitor Mode: External Duration (sec)2399: DENIES Resting Tone Emmons: Relaxed Heart Rate FHR Baseline Rate: 130 Monitor Mode: External US Variability: Moderate 6-25 bpm Accelerations: 15X15 Decelerations: None Category: Category I Pain Presence: None/Denies Pain Type: N/A Datetime: 08/17/2016 23:30 Labor Evaluation Frequency: 0 Monitor Mode: External Duration (sec)2399: denies Resting Tone Emmons: Relaxed Heart Rate FHR Baseline Rate: 135 Monitor Mode: External US Variability: Moderate 6-25 bpm Accelerations: 15X15 Decelerations: None Category: Category I Pain Presence: None/Denies Pain Type: N/A Datetime: 08/17/2016 22:30 Labor Evaluation Frequency: 0 Monitor Mode: External Duration (sec)2399: denies Resting Tone Emmons: Relaxed Heart Rate FHR Baseline Rate: 135 Monitor Mode: External US Variability: Moderate 6-25 bpm Accelerations: 15X15 Decelerations: None Category: Category I Pain Presence: None/Denies Pain Type: N/A Datetime: 08/17/2016 21:30 Labor Evaluation Frequency: 0 Monitor Mode: External Duration (sec)2399: denies Resting Tone Emmons: Relaxed Heart Rate FHR Baseline Rate: 135 Monitor Mode: External US Variability: Moderate 6-25 bpm Accelerations: 15X15 Decelerations: None Category: Category I Pain Assessment Pain Scale: 0 Pain Presence: None/Denies Pain Type: N/A Datetime: 08/17/2016 20:30 Labor Evaluation Frequency: 0 Monitor Mode: External Duration (sec)2399: denies Resting Tone Emmons: Relaxed Heart Rate FHR Baseline Rate: 140 Monitor Mode: External US Variability: Moderate 6-25 bpm Accelerations: 15X15 Decelerations: None Category: Category I Pain Presence: None/Denies Pain Type: N/A Datetime: 08/17/2016 19:45 Stage of : Antepartum Assessment Type: Ongoing Assessment Maternal Assessment Level of Consciousness: Fully Conscious DTR's/Clonus: DTRs 2+; No Clonus Headache: Denies Blurred Vision: No Respiratory Effort: Unlabored; Regular Rhythm; Equal Expansion Breath Sounds, Left: Clear and Equal Breath Sounds, Right: Clear and Equal Nausea/Vomiting: Denies RUQ Epigastric Pain: Denies Lower Extremities Edema: None Degree: None Upper Extremities Edema: None Degree: None Facial Edema: None Temperature Route: Oral Fall Risk Assessment History of Falling: (0) No Secondary Diagnosis: (0) No Ambulatory Aid: (0) Bedrest/Nurse Assist IV Therapy: (0) No Gait: (0) Normal/Bedrest/Immobile Mental Status: (0) Oriented to Own Ability Fall Score: 0 Fall Risk Score Definition: No Risk: No action required Datetime: 08/17/2016 19:31 Comments: assumed care of pt. Datetime: 08/17/2016 18:30 Labor Evaluation Frequency: 0 Monitor Mode: External Resting Tone Emmons: Relaxed Monitor Mode: External US Datetime: 08/17/2016 17:32 Labor Evaluation Frequency: 0 Monitor Mode: External Duration (sec)2399: 0 Heart Rate FHR Baseline Rate: 130 Monitor Mode: External US FHR Baseline Changes: No Baseline Change Variability: Moderate 6-25 bpm Accelerations: 15X15 Decelerations: None Category: Category I Datetime: 08/17/2016 17:00 Labor Evaluation Frequency: 0 Monitor Mode: External Resting Tone Emmons: Relaxed Heart Rate FHR Baseline Rate: 130 Monitor Mode: External US FHR Baseline Changes: No Baseline Change Variability: Moderate 6-25 bpm Accelerations: 15X15 Decelerations: Variable (Annotations: X1 DECEL) Category: Category I Datetime: 08/17/2016 16:01 Stage of : Antepartum Pain Assessment Pain Scale: 0 Pain Presence: None/Denies Datetime: 08/17/2016 15:58 Labor Evaluation Frequency: 0 Monitor Mode: External Resting Tone Emmons: Relaxed Heart Rate FHR Baseline Rate: 130 Monitor Mode: External US FHR Baseline Changes: No Baseline Change Variability: Moderate 6-25 bpm Accelerations: 15X15 Decelerations: None Category: Category I Datetime: 08/17/2016 15:00 Labor Evaluation Frequency: 0 Monitor Mode: External Resting Tone Emmons: Relaxed Heart Rate FHR Baseline Rate: 135 Monitor Mode: External US FHR Baseline Changes: No Baseline Change Variability: Moderate 6-25 bpm Accelerations: 15X15 Decelerations: None Category: Category I Datetime: 08/17/2016 14:29 Labor Evaluation Frequency: 0 Monitor Mode: External Duration (sec)2399: 0 Heart Rate FHR Baseline Rate: 140 Monitor Mode: External US FHR Baseline Changes: No Baseline Change Variability: Moderate 6-25 bpm Accelerations: 15X15 Decelerations: None Category: Category I Datetime: 08/17/2016 14:24 Stage of : Antepartum Datetime: 08/17/2016 14:00 Labor Evaluation Frequency: 0 Monitor Mode: External Resting Tone Emmons: Relaxed Heart Rate FHR Baseline Rate: 130 Monitor Mode: External US FHR Baseline Changes: No Baseline Change Variability: Moderate 6-25 bpm Accelerations: 15X15 Decelerations: None Category: Category I Datetime: 08/17/2016 13:47 Assessment Type: Admission Assessment Vaginal Bleeding: None Maternal Assessment Level of Consciousness: Fully Conscious DTR's/Clonus: DTRs 2+; No Clonus Headache: Denies Blurred Vision: No Respiratory Effort: Unlabored; Regular Rhythm; Equal Expansion Breath Sounds, Left: Clear and Equal Breath Sounds, Right: Clear and Equal Nausea/Vomiting: Denies RUQ Epigastric Pain: Denies Lower Extremities Edema: None Degree: None Upper Extremities Edema: None Degree: None Facial Edema: None Fall Risk Assessment History of Falling: (0) No Secondary Diagnosis: (0) No Ambulatory Aid: (0) Bedrest/Nurse Assist IV Therapy: (0) No Gait: (0) Normal/Bedrest/Immobile Mental Status: (0) Oriented to Own Ability Fall Score: 0 Fall Risk Score Definition: No Risk: No action required Heart Rate FHR Baseline Rate: 130 Variability: Moderate 6-25 bpm Accelerations: 15X15 Decelerations: None Category: Category I Vaginal Exam Membrane Status: Intact Datetime: 08/17/2016 13:19 Assessment Type: Ongoing Assessment Vaginal Bleeding: None Maternal Assessment Level of Consciousness: Fully Conscious DTR's/Clonus: DTRs 2+; No Clonus Headache: Denies Blurred Vision: No Respiratory Effort: Unlabored; Regular Rhythm; Equal Expansion Breath Sounds, Left: Clear and Equal Breath Sounds, Right: Clear and Equal Nausea/Vomiting: Denies RUQ Epigastric Pain: Denies Facial Edema: None Fall Risk Assessment History of Falling: (0) No Secondary Diagnosis: (0) No Ambulatory Aid: (0) Bedrest/Nurse Assist IV Therapy: (0) No Gait: (0) Normal/Bedrest/Immobile Mental Status: (0) Oriented to Own Ability Fall Score: 0 Fall Risk Score Definition: No Risk: No action required Pain Assessment Pain Scale: 0 Pain Presence: None/Denies Datetime: 08/17/2016 13:00 Stage of : Antepartum Labor Evaluation Frequency: 0 Monitor Mode: External Resting Tone Emmons: Relaxed Heart Rate FHR Baseline Rate: 130 Monitor Mode: External US FHR Baseline Changes: No Baseline Change Variability: Moderate 6-25 bpm Accelerations: 15X15 Decelerations: None Category: Category I Datetime: 08/17/2016 12:48 Stage of : Antepartum Datetime: 08/17/2016 12:21 Stage of : OB Triage Datetime: 08/17/2016 10:57 Labor Evaluation Frequency: 6-8 Monitor Mode: External Duration (sec)2399: 20-40 Quality: Mild Pattern: Normal: <= 5 Contractions in 10 Minutes Resting Tone Emmons: Relaxed Contraction Comments: DENIES FEELING Heart Rate FHR Baseline Rate: 135 Monitor Mode: External US Variability: Moderate 6-25 bpm Accelerations: 10X10 Decelerations: None Category: Category I Pain Assessment Pain Scale: 0 Pain Presence: None/Denies Pain Type: N/A Pain Goal: 3 Pain Relief Measures: Comfort Measures Datetime: 08/17/2016 09:56 Stage of : OB Triage Assessment Type: Triage Maternal Assessment Level of Consciousness: Fully Conscious DTR's/Clonus: DTRs 2+; No Clonus Headache: Denies Blurred Vision: No Respiratory Effort: Unlabored; Regular Rhythm; Equal Expansion Breath Sounds, Left: Clear and Equal Breath Sounds, Right: Clear and Equal Nausea/Vomiting: Denies RUQ Epigastric Pain: Denies Facial Edema: None Temperature Route: Axillary Fall Risk Assessment History of Falling: (0) No Secondary Diagnosis: (0) No Ambulatory Aid: (0) Bedrest/Nurse Assist IV Therapy: (0) No Gait: (0) Normal/Bedrest/Immobile Mental Status: (0) Oriented to Own Ability Fall Score: 0 Fall Risk Score Definition: No Risk: No action required Labor Evaluation Frequency: 0 Monitor Mode: External Pattern: Normal: <= 5 Contractions in 10 Minutes Resting Tone Emmons: Relaxed Heart Rate FHR Baseline Rate: 135 Monitor Mode: External US Variability: Moderate 6-25 bpm Accelerations: 10X10 Decelerations: None Category: Category I Pain Assessment Pain Scale: 0 Pain Presence: None/Denies Pain Type: N/A Pain Goal: 3 Datetime: 08/17/2016 09:55 Time of Arrival: 08/17/2016 12:30 EGA: 32.6 Arrived From: Other Unit in Hospital Datetime: 08/17/2016 09:54 Time of Arrival: 08/17/2016 09:35 Arrived By: Ambulatory Arrived From: Home Chief Complaint: SENT FROM OFFICE YESTERDAY TO R/O PIH DENIES UC'S, BLEEDING OR UC'S Movement: Present Contractions: Denies/Absent Rupture of Membranes: Denies Vaginal Bleeding: None Vaginal Discharge: Denies Recent Sexual Intercouse: Denies Abdominal Trauma: Not Applicable Patient Complaints: None Time Provider Notified: 08/17/2016 12:20 Provider Notified: MU Initial Plan: MONITOR, PIH PANEL, BPP/ROXIE
[2016-09-06] MEDS: MAGNESIUM SULFATE 20 GM/500 ML 500 ML IV SCH (20:49)
--- NOTE | 2016-09-06 20:49 | RADRPT ---
PROCEDURE: US OB biophysical profile. CLINICAL INDICATION: decreased movements, preeclampsia TECHNIQUE: Multiple sonographic images of the pelvis were obtained. The images were reviewed on a PACS workstation. COMPARISON: 08/18/2016 FINDINGS: There is a single viable intrauterine gestation. Cardiac activity is present with 137 beats per min [place]. There is a vertex presentation. The placenta is anterior fundal. There is no evidence of placental abruption. There is a normal amount of amniotic fluid with an ROXIE = 11.2 cm. Biophysical profile: movement 2/2 tone 2/2. breathing 2/2 ROXIE 2/2 Total 10/03 RPTAT: AA . IMPRESSION: Normal biophysical profile. . .Nii Santiago MD, MD Date Time Electronically viewed and signed by .Nii Santiago MD, MD on 09/06/2016 20:49 .S/
--- NOTE | 2016-09-06 20:55 | HP ---
Date/Time of Note Date/Time of Note DATE: 09/06/16 TIME: 20:52 OB - History Hx of Present Free Text/Dictation Patient was sent from office due to elevated blood pressure. Has a history of PIH and current has been on labetalol 100 mg p.o. twice daily. Denies any headache, blurred vision or epigastric pain. : 5 Para: 3 Care: Good Care Medical Complications: Other Other Concerns: PIH 41-year-old with IUP at 35 weeks and 5 days with care with Dr. Gracia. She was noted to have elevated blood pressure in second trimester. Was started on labetalol 100 mg p.o. twice daily. Was seen in the office today. Noted to have elevated blood pressure from her baseline. She was sent to triage for rule out PIH. She denies any headache, blurred vision or epigastric pain. Denies any leaking of fluid, vaginal bleeding or decreased movement. On arrival her blood pressure noted to be in the range of 160s over 90s. During observation blood pressure elevated to 170-180/90 -100's Past Family/Social History * Past Medical, Surgical, Family and Obstetric Histories reviewed from chart. OB Admission Exam Vital Signs Vital Signs Vital Signs Date Time Temp Pulse Resp B/P Pulse Ox O2 Delivery O2 Flow Rate FiO2 09/06/16 16:33 98.5 69 16 136/85 Physical Exam HEENT: WNL Heart: Rhythm Normal Lungs: Clear Abdomen: WNL Extremities: Normal Reflexes: Normal Cervical Dilatation: None Heart Rate: 130's Accelerations: Accelerations Present Decelerations: No Decelerations Varibility: Moderate Last 72 hours Lab Results CBC & BMP 09/06/16 17:00 Liver Function Test 09/06/16 17:00 Alanine Aminotransferase (ALT/SGPT) 63 Albumin 4.0 Alkaline Phosphatase 180 H Aspartate Amino Transf (AST/SGOT) 43 Direct Bilirubin 0.00 Total Protein 7.1 OB Assessment/Plan Other Assessment: IUP at 35 weeks and 5 days Elevated blood pressure in the severe range noted in triage. . Asymptomatic Patient will be admitted for serial blood pressure mornitoring Start anenatal steriods, accelerated dose due to risk for PTD for worsening of PIH PIH panel obtained and are within normal limits will watch closely Start Magnesium for seizure prophylaxiz Consider delivery if needed repetitive doses of IV antihypertensive meds, worsening of labs Perinatology and neonatalogy consultation due to risk for PTD KINGSLEY BARNEY MD Sep 06, 2016 20:55
[2016-09-06 21:35] LABS: ALBUMIN 4.1 g/dl (3.3-4.9); BILIRUBIN,INDIRECT 0.1 mg/dl (0-1.1); BILIRUBIN,TOTAL 0.1 mg/dl (0.2-1.3); CALCIUM 9.9 mg/dl (8.4-10.2); CREATININE 0.67 mg/dl (0.44-1.00); PHOSPHORUS 3.5 mg/dl (2.5-4.9); POTASSIUM 3.9 mmol/L (3.5-5.1); TOTAL PROTEIN 7.2 g/dl (6.1-8.1)
[2016-09-07] MEDS ORDERED: LABETALOL 200 MG TAB PO SCH (01:00)
[2016-09-07] MEDS: ACETAMINOPHEN 325 MG TAB PO PRN ×2 (01:46→11:11)
[2016-09-07] MEDS: LACTATED RINGER'S 1,000 ML IV SCH ×2 (07:01→19:23)
[2016-09-07] MEDS: BETAMET NA PHOS/AC(6 MG/ML) 5ML INJ IM SCH (07:02)
[2016-09-07] MEDS: MAGNESIUM SULFATE 20 GM/500 ML 500 ML IV SCH ×2 (07:08→16:14)
[2016-09-07] MEDS ORDERED: PRENATAL VITAMIN PO SCH (10:00)
[2016-09-07] MEDS ORDERED: LABETALOL 100 MG TAB PO SCH (10:27)
[2016-09-07] MEDS: PRENATAL VITAMIN PO SCH (10:33)
--- NOTE | 2016-09-07 11:21 | CONS ---
Date/Time of Note Date/Time of Note DATE: 09/07/16 TIME: 11:11 Consultation Date/Type/Reason Admit Date/Time September 07, 2016 [facility] visit Reason for Consultation This patient is a 41 years old 5 para 3 1 with estimated date of confinement of October 06 which makes her 35 weeks and 6 days today . she had a history of elevated blood pressure during her course but yesterday she was sent to the hospital due to elevated blood pressure over 173/ 95 and 166/99 and in the clinic it was 188/92 She came to OB triage and was admitted in [facility] floor She was placed on labetalol 100 mg twice daily which was later increased to 200 mg twice daily We will also start her on mag sulfate. Laboratory Tests Test 09/06/16 16:30 09/06/16 17:00 09/06/16 20:41 09/07/16 00:30 Urine Color YELLOW Urine Clarity SLIGHTLY CLOUDY Urine pH 6.0 Urine Specific Hubbell 1.021 Urine Ketones NEGATIVEmg/dL Urine Nitrite NEGATIVEmg/dL Urine Bilirubin NEGATIVEmg/dL Urine Urobilinogen NEGATIVEmg/dL Urine Leukocyte Esterase 2+Laverne/ul Urine Microscopic RBC 1/HPF Urine Microscopic WBC 3/HPF Urine Squamous Epithelial Cells FEW/HPF Urine Hemoglobin NEGATIVEmg/dL Urine Glucose NEGATIVEmg/dL Urine Total Protein 1+mg/dl White Blood Count 6.610^3/ul Red Blood Count 3.5710^6/ul Hemoglobin 11.3g/dl Hematocrit 33.0% Mean Corpuscular Volume 92.4fl Mean Corpuscular Hemoglobin 31.7pg Mean Corpuscular Hemoglobin Concent 34.2g/dl Red Cell Distribution Width 13.5% Platelet Count 56841^3/UL Mean Platelet Volume 11.4fl Neutrophils % 65.7% Lymphocytes % 24.1% Monocytes % 7.8% Eosinophils % 1.4% Basophils % 0.5% Nucleated Red Blood Cells % 0.0/100WBC Neutrophils # 4.310^3/ul Lymphocytes # 1.610^3/ul Monocytes # 0.510^3/ul Eosinophils # 0.110^3/ul Basophils # 0.010^3/ul Nucleated Red Blood Cells # 0.010^3/ul Prothrombin Time 12.2Sec Prothrombin Time Ratio 1.0 INR International Normalized Ratio 0.91 Activated Partial Thromboplast Time 27.6Sec Fibrinogen 401.0mg/dl Sodium Level 128mmol/L 129mmol/L Potassium Level 3.9mmol/L 3.9mmol/L Chloride Level 101mmol/L 102mmol/L Carbon Dioxide Level 23mmol/L 19mmol/L Anion Gap 8 12 Blood Urea Nitrogen 13mg/dl 13mg/dl Creatinine 0.65mg/dl 0.67mg/dl Glucose Level 95mg/dl 113mg/dl Uric Acid 6.5mg/dl Calcium Level 10.2mg/dl 9.9mg/dl Total Bilirubin 0.2mg/dl 0.1mg/dl Direct Bilirubin 0.00mg/dl 0.00mg/dl Indirect Bilirubin 0.2mg/dl 0.1mg/dl Aspartate Amino Transf (AST/SGOT) 43IU/L 46IU/L Alanine Aminotransferase (ALT/SGPT) 63IU/L 63IU/L Alkaline Phosphatase 180IU/L 232IU/L Total Protein 7.1g/dl 7.2g/dl Albumin 4.0g/dl 4.1g/dl Globulin 3.10g/dl Albumin/Globulin Ratio 1.29 Plasma Fibrin Degradation Products <10ug/ml Phosphorus Level 3.5mg/dl Lactate Dehydrogenase 434IU/L Hepatitis B Surface Antigen NEGATIVE Magnesium Level 4.9mg/dl Test 09/07/16 06:16 Magnesium Level 5.3mg/dl Current Medications Medications (Trade) Dose Ordered Sig/Leydi Route PRN Reason Start Time Stop Time Status Last Admin Dose Admin Lactated Ringer's (Lr) 1,000 ml @ 125 mls/hr Q8H IV* 09/06/16 19:00 09/06/16 20:22 DC 09/06/16 19:04 125 MLS/HR Betamethasone Acet/Betameth SodPhos (Celestone Soluspan) 12 mg Q12H IM 09/06/16 19:00 09/07/16 07:01 DC 09/07/16 07:02 12 MG Labetalol HCl 20 mg 20 mg STK-MED ONCE .ROUTE 09/06/16 20:01 09/06/16 20:02 DC Magnesium Sulfate 100 ml @ ud STK-MED ONCE .ROUTE 09/06/16 20:01 09/06/16 20:02 DC Lactated Ringer's 1,000 ml @ 125 mls/hr Q8H IV 09/06/16 20:11 09/07/16 00:02 DC 09/06/16 19:24 125 MLS/HR Dextrose/Lactated Ringer's (D5-Lr) 1,000 ml @ 125 mls/hr Q8H IV 09/06/16 20:11 09/07/16 00:03 DC Lidocaine 30 ml 30 ml ONCE PRN INJ EPISIOTOMY/TEARING 09/06/16 20:30 09/07/16 00:02 DC Oxytocin/Lactated Ringer's 500 ml @ 125 mls/hr ONCE -MAY REPEAT X1 IV 09/06/16 20:30 09/07/16 00:03 DC Oxytocin/Lactated Ringer's 500 ml @ 125 mls/hr ONCE IV 09/06/16 20:30 09/07/16 00:03 DC Ibuprofen (Motrin) 600 mg ONCE PRN PO Mild Pain (Pain Score 1-3) 09/06/16 20:30 09/07/16 00:03 DC Acetaminophen/ Codeine Phosphate 2 tab 2 tab ONCE PRN PO Moderate to Severe Pain (4-10) 09/06/16 20:30 09/07/16 00:03 DC Lactated Ringer's 1,000 ml @ 2,000 mls/hr Q30M PRN IV PRE-EPIDURAL BOLUS 09/06/16 20:14 09/07/16 00:03 DC Oxytocin/Lactated Ringer's 500 ml @ 0 mls/hr ONCE PRN IV For Hemorrhage Management 09/06/16 20:30 09/07/16 00:03 DC Methylergonovine Maleate (Methergine) 0.2 mg ONCE PRN IM VAGINAL BLEEDING 09/06/16 20:30 09/07/16 00:04 DC Carboprost Tromethamine (Hemabate) 250 mcg ONCE PRN IM VAGINAL BLEEDING 09/06/16 20:30 09/07/16 09:43 DC Misoprostol 1000 mcg 1,000 mcg ONCE PRN UT VAGINAL BLEEDING 09/06/16 20:30 09/07/16 00:04 DC Magnesium Sulfate 100 ml @ 200 mls/hr ONCE IV 09/06/16 20:30 09/06/16 20:59 DC 09/06/16 20:09 200 MLS/HR Magnesium Sulfate (Magnesium Sulfate 20 Gm/500 ml) 500 ml @ 50 mls/hr Q10H IV 09/06/16 20:11 09/07/16 07:08 50 MLS/HR Calcium Gluconate (Ca Gluc) 1 gm ONCE PRN IV FOR MAGNESIUM TOXICITY 09/06/16 20:30 Labetalol HCl (Labetalol) 20 mg ONCE ONCE IV 09/06/16 20:30 09/06/16 20:31 DC 09/06/16 20:06 20 MG Labetalol HCl (Labetalol) 20 mg Q10M PRN IV ELEVATED BLOOD PRESSURE 09/06/16 20:30 09/07/16 00:04 DC 09/06/16 21:25 20 MG Acetaminophen (Tylenol Tab) 650 mg Q4H PRN PO PAIN AND OR ELEVATED TEMP 09/06/16 20:30 09/07/16 00:03 DC Prenat Multivit/ County Auditor/Iron/Folic Ac () 1 tab DAILY PO 09/07/16 09:00 09/07/16 10:33 1 TAB Acetaminophen (Tylenol Tab) 650 mg Q4H PRN PO PAIN AND OR ELEVATED TEMP 09/07/16 00:00 09/07/16 01:46 650 MG Labetalol HCl 200 mg 200 mg BID PO 09/07/16 01:00 09/07/16 10:27 DC 09/07/16 01:23 200 MG Lactated Ringer's (Lr) 1,000 ml @ 75 mls/hr [id number] IV 09/07/16 05:00 09/07/16 07:01 75 MLS/HR Prenat Multivit/ Martorell/Iron/Folic Ac () 1 tab DAILY PO 09/07/16 10:00 UNV Labetalol HCl (Normodyne) 200 mg BID PO 09/07/16 10:27 09/07/16 10:34 200 MG Hx of Present Illness Today on examination she is fairly comfortable lady her knee-jerk reflexes are about 1+. No complaint of headache, blurred vision . abdomen is soft she has occasional contraction heart tone is reactive with good variability and occasional acceleration no deceleration. Her biophysical profile was 8/8 Constitutional: No chills, No diaphoresis, No disoriented, No febrile, No improved, No no complaints, No other, No poor po, No requiring IVF, No requiring O2 Eyes: No discharge, No no complaints, No other, No pain, No redness, No visual change ENT: No bleeding, No congestion, No discharge, No dysphagia, No no complaints, No other, No pain, No sore throat Respiratory: No cough, No no complaints, No other, No pain, No pleuritic pain, No shortness of breath, No sputum, No wheezing Cardiovascular: other (Normal sinus rhythm no murmur), No chest pain, No edema, No lightheadedness, No no complaints, No orthopenea , No palpitations, No paroxysmal nocturnal dyspnea Gastrointestinal: other (No epigastric pain), No blood, No constipation, No decreased appetite, No diarrhea, No flatus, No nausea, No no complaints, No pain, No passing stool, No vomiting Genitourinary: other (No urinary symptoms no CVA tenderness), No bleeding, No discharge, No dysuria, No flank pain, No hematuria, No no complaints Musculoskeletal: No back pain, No bone/joint pain, No neck pain, No no complaints, No other, No restricted range of motion, No swelling Skin: No bruising, No erythema, No laceration, No no complaints, No other, No pruritis, No rash, No skin lesions Neurologic: other (Knee-jerk reflexes 1+ as I mentioned no ankle edema), No confusion, No dizziness, No focal-weakness, No headache, No no complaints , No seizure, No syncope Additional Comments Due to the fact that her blood pressure is within normal range we will reduce the labetalol 200 mg twice daily and will DC mag sulfate. Social History Smoking Status: Never smoker Exam/Review of Systems Vital Signs Vitals Vital Signs Date Time Temp Pulse Resp B/P Pulse Ox O2 Delivery O2 Flow Rate FiO2 09/06/16 16:33 98.5 69 16 136/85 Intake and Output 09/06/16 09/06/16 09/07/16 14:59 22:59 06:59 Intake Total 100 ml 1875 ml Output Total 300 ml Balance 100 ml 1575 ml Results Result Diagram: 09/06/16 1700 09/06/161 Results 24 hrs Laboratory Tests Test 09/06/16 16:30 09/06/16 17:00 09/06/16 20:41 09/07/16 00:30 Urine Color YELLOW Urine Clarity SLIGHTLY CLOUDY A Urine pH 6.0 Urine Specific Hubbell 1.021 Urine Ketones NEGATIVE Urine Nitrite NEGATIVE Urine Bilirubin NEGATIVE Urine Urobilinogen NEGATIVE Urine Leukocyte Esterase 2+ H Urine Microscopic RBC 1 Urine Microscopic WBC 3 Urine Squamous Epithelial Cells FEW Urine Hemoglobin NEGATIVE Urine Glucose NEGATIVE Urine Total Protein 1+ H White Blood Count 6.6 Red Blood Count 3.57 L Hemoglobin 11.3 L Hematocrit 33.0 L Mean Corpuscular Volume 92.4 Mean Corpuscular Hemoglobin 31.7 Mean Corpuscular Hemoglobin Concent 34.2 Red Cell Distribution Width 13.5 Platelet Count 218 Mean Platelet Volume 11.4 H Neutrophils % 65.7 Lymphocytes % 24.1 Monocytes % 7.8 Eosinophils % 1.4 Basophils % 0.5 Nucleated Red Blood Cells % 0.0 Neutrophils # 4.3 Lymphocytes # 1.6 Monocytes # 0.5 Eosinophils # 0.1 Basophils # 0.0 Nucleated Red Blood Cells # 0.0 Prothrombin Time 12.2 Prothrombin Time Ratio 1.0 INR International Normalized Ratio 0.91 Activated Partial Thromboplast Time 27.6 Fibrinogen 401.0 # Sodium Level 128 L 129 L Potassium Level 3.9 3.9 Chloride Level 101 102 Carbon Dioxide Level 23 19 L Anion Gap 8 12 Blood Urea Nitrogen 13 13 Creatinine 0.65 0.67 Glucose Level 95 113 Uric Acid 6.5 Calcium Level 10.2 9.9 Total Bilirubin 0.2 0.1 L Direct Bilirubin 0.00 0.00 Indirect Bilirubin 0.2 0.1 Aspartate Amino Transf (AST/SGOT) 43 46 Alanine Aminotransferase (ALT/SGPT) 63 63 Alkaline Phosphatase 180 H 232 H Total Protein 7.1 7.2 Albumin 4.0 4.1 Globulin 3.10 Albumin/Globulin Ratio 1.29 Plasma Fibrin Degradation Products <10 Phosphorus Level 3.5 Lactate Dehydrogenase 434 Hepatitis B Surface Antigen NEGATIVE Magnesium Level 4.9 H Test 09/07/16 06:16 Magnesium Level 5.3 *H Medications Medications Current Medications Magnesium Sulfate (Magnesium Sulfate 20 Gm/500 ml) 500 ml @ 50 mls/hr Q10H IV Last administered on 09/07/16t 07:08; Admin Dose 50 MLS/HR; Start 09/06/16 at 20 :11 Calcium Gluconate (Ca Gluc) 1 gm ONCE PRN IV FOR MAGNESIUM TOXICITY; Start 09/06 at 20:30 Prenat Multivit/ Martorell/Iron/Folic Ac () 1 tab DAILY PO Last administered on 09/07/16 10:33; Admin Dose 1 TAB; Start 09/07/16 at 09:00 Acetaminophen 650 mg 650 mg Q4H PRN PO PAIN AND OR ELEVATED TEMP Last administered on 09/07/16 01:46; Admin Dose 650 MG; Start 09/07/16 at 00:00 Lactated Ringer's (Lr) 1,000 ml @ 75 mls/hr [id number] IV Last administered on 07:01; Admin Dose 75 MLS/HR; Start 09/07/16 at 05:00 Labetalol HCl (Normodyne) 200 mg BID PO Last administered on 09/07/16 10:34; Admin Dose 200 MG; Start 09/07/16 at 10:27 TITA GARCIA MD Sep 07, 2016 11:20
[2016-09-07] MEDS: AL HYDROX/MG HYDROX/SIMETH 30 ML CUP PO PRN (19:14)
[2016-09-07] MEDS: LABETALOL 100 MG TAB PO SCH (20:54)
--- NOTE | 2016-09-07 23:58 | PN ---
Date/Time of Note Date/Time of Note DATE: 09/07/16 TIME: 23:51 OB Subjective Subjective Subjective no subjective symptoms OB Objective Objective Objective recent BP 125/72 on labetalol 200mg bid EFW 2739gm urine protien +1 EFM no uc on magnesium sulfate OB Assessment/Plan Other Assessment: IUP 35w6d s/p x2dose of bmz 12hrs apart PIH Other plan: d/c magnesium sulate in am NANCY BOWENS MD Sep 07, 2016 23:58
[2016-09-08] MEDS: ACETAMINOPHEN 325 MG TAB PO PRN (01:09)
[2016-09-08] MEDS: MAGNESIUM SULFATE 20 GM/500 ML 500 ML IV SCH (02:16)
[2016-09-08] MEDS: LACTATED RINGER'S 1,000 ML IV SCH (08:23)
[2016-09-08] MEDS: AL HYDROX/MG HYDROX/SIMETH 30 ML CUP PO PRN ×2 (09:06→18:48)
[2016-09-08] MEDS: LABETALOL 100 MG TAB PO SCH ×2 (09:06→21:08)
[2016-09-08] MEDS: PRENATAL VITAMIN PO SCH (09:06)
--- NOTE | 2016-09-08 09:34 | QN ---
Documentation Comment Afebrile vitals signs are within normal latest blood pressure 138/78, currently on labetalol 200 mg p.o. twice daily, no complaint of headache blurry vision or epigastric pain will continue present treatment under close observation ANALI DOBBINS MD Sep 08, 2016 09:34
[2016-09-09] MEDS: PRENATAL VITAMIN PO SCH (09:22)
[2016-09-09] MEDS: LABETALOL 100 MG TAB PO SCH ×2 (09:22→21:03)
--- NOTE | 2016-09-09 13:28 | QN ---
Documentation Comment She is sitting in bed finishing her lunch ,no complaint of headache , blurry vision or epigastric pain we are still awaiting for the 24 hours urine collection for protein and creatinine clearance, currently on labetalol 200 mg twice daily will wait for the results of 24 hour urine protein. ANALI DOBBINS MD Sep 09, 2016 13:28
[2016-09-09] MEDS: AL HYDROX/MG HYDROX/SIMETH 30 ML CUP PO PRN (19:36)
[2016-09-10] MEDS: AL HYDROX/MG HYDROX/SIMETH 30 ML CUP PO PRN ×2 (00:25→19:40)
[2016-09-10] MEDS: PRENATAL VITAMIN PO SCH (08:57)
[2016-09-10] MEDS: LABETALOL 100 MG TAB PO SCH ×2 (08:57→21:47)
[2016-09-10 21:21] LABS: ADD SCAN DIFF NO
[2016-09-10 21:22] LABS: BASOPHILS % 0.3 % (0.0-2.0); EOSINOPHILS # 0.1 10^3/ul (0.0-0.5); EOSINOPHILS % 1.1 % (0.0-7.0); HEMATOCRIT 35.9 % (37.0-47.0); HEMOGLOBIN 12.1 g/dl (12.0-16.0); LYMPHOCYTES # 2.2 10^3/ul (0.8-2.9); LYMPHOCYTES % 21.3 % (15.0-51.0); MEAN CORPUSCULAR HEMOGLOBIN 31.5 pg (29.0-33.0); MEAN CORPUSCULAR HGB CONC 33.7 g/dl (32.0-37.0); MEAN CORPUSCULAR VOLUME 93.5 fl (82.0-101.0); MEAN PLATELET VOLUME 11.2 fl (7.4-10.4); MONOCYTE # 0.9 10^3/ul (0.3-0.9); MONOCYTES % 8.5 % (0.0-11.0); NEUTROPHIL # 6.8 10^3/ul (1.6-7.5); NUCLEATED RED BLOOD CELLS% 0.3 /100WBC (0.0-0.0); PLATELET COUNT 221 10^3/UL (140-415); RED BLOOD COUNT 3.84 10^6/ul (4.20-5.40); RED CELL DISTRIBUTION WIDTH 13.8 % (11.5-14.5); WHITE BLOOD COUNT 10.2 10^3/ul (4.8-10.8)
--- NOTE | 2016-09-10 21:27 | PN ---
Date/Time of Note Date/Time of Note DATE: 09/10/16 TIME: 21:25 OB Subjective Subjective Subjective No complaint. Denies headache, visual disturbance or epigastric pain. Afebrile VSS Strip Reactive Will repeat PIH labs and BPP. Increase labetalol to 200 mg PO Q 8h. SVITLANA CAREY MD Sep 10, 2016 21:27
[2016-09-10 21:50] LABS: ALBUMIN/GLOBULIN RATIO 1.37; BILIRUBIN,INDIRECT 0.1 mg/dl (0-1.1); BILIRUBIN,TOTAL 0.1 mg/dl (0.2-1.3); CREATININE 0.82 mg/dl (0.44-1.00); POTASSIUM 4.3 mmol/L (3.5-5.1); TOTAL PROTEIN 6.9 g/dl (6.1-8.1); URIC ACID 7.4 mg/dl (3.1-7.9)
--- NOTE | 2016-09-10 21:54 | RADRPT ---
PROCEDURE: US OB biophysical profile. CLINICAL INDICATION: Preeclampsia TECHNIQUE: Multiple sonographic images of the pelvis were obtained. The images were reviewed on a PACS workstation. COMPARISON: No pertinent prior examinations were submitted for comparison. FINDINGS: There is a single viable intrauterine gestation. Cardiac activity is present with 157 beats per min micheal. There is a vertex presentation. The placenta is anterior, grade 1 appearance. There is a normal amount of amniotic fluid with an ROXIE = 10.8 cm. Biophysical profile: movement 2/2 tone 2/2. breathing 2/2 ROXIE 2/2 Total 10/03 IMPRESSION: Normal biophysical profile. RPTAT: HIKT . .Jac Iyer MD, Date Time Electronically viewed and signed by .Jac Iyer MD, on 09/10/2016 21:54 .T/
[2016-09-10] MEDS ORDERED: MAGNESIUM SULFATE 4 GM/100 ML 100 ML IVPB ONE (23:30)
[2016-09-10] MEDS: LACTATED RINGER'S 1,000 ML IV SCH (23:37)
[2016-09-11] MEDS: MAGNESIUM SULFATE 20 GM/500 ML 500 ML IV SCH ×3 (00:02→18:02)
[2016-09-11 06:04] LABS: ADD SCAN DIFF NO
[2016-09-11 06:09] LABS: BASOPHILS % 0.4 % (0.0-2.0); EOSINOPHILS # 0.1 10^3/ul (0.0-0.5); EOSINOPHILS % 1.4 % (0.0-7.0); HEMATOCRIT 36.3 % (37.0-47.0); HEMOGLOBIN 11.9 g/dl (12.0-16.0); LYMPHOCYTES # 2.3 10^3/ul (0.8-2.9); MEAN CORPUSCULAR HEMOGLOBIN 30.8 pg (29.0-33.0); MEAN CORPUSCULAR HGB CONC 32.8 g/dl (32.0-37.0); MEAN PLATELET VOLUME 11.6 fl (7.4-10.4); MONOCYTE # 0.8 10^3/ul (0.3-0.9); MONOCYTES % 7.4 % (0.0-11.0); NEUTROPHIL # 6.6 10^3/ul (1.6-7.5); NEUTROPHILS % 65.4 % (39.0-77.0); PLATELET COUNT 251 10^3/UL (140-415); RED BLOOD COUNT 3.86 10^6/ul (4.20-5.40); WHITE BLOOD COUNT 10.1 10^3/ul (4.8-10.8)
[2016-09-11] MEDS: LABETALOL 100 MG TAB PO SCH ×3 (06:28→20:55)
[2016-09-11 06:58] LABS: ALBUMIN 3.7 g/dl (3.3-4.9); ALBUMIN/GLOBULIN RATIO 1.42; BILIRUBIN,INDIRECT 0.1 mg/dl (0-1.1); BILIRUBIN,TOTAL 0.1 mg/dl (0.2-1.3); CALCIUM 9.3 mg/dl (8.4-10.2); CREATININE 0.69 mg/dl (0.44-1.00); TOTAL PROTEIN 6.3 g/dl (6.1-8.1); URIC ACID 6.9 mg/dl (3.1-7.9)
[2016-09-11] MEDS: LACTATED RINGER'S 1,000 ML IV SCH ×2 (08:54→23:29)
[2016-09-11] MEDS: PRENATAL VITAMIN PO SCH (09:00)
[2016-09-11] MEDS ORDERED: LABETALOL HCL 20MG INJ IV ONE (21:00)
[2016-09-11] MEDS: MISOPROSTOL 25 MCG CAPSULE PO PRN (22:35)
[2016-09-11] MEDS ORDERED: BUTORPHANOL 2 MG INJ IV PRN ×2 (23:30)
[2016-09-11] MEDS ORDERED: OXYTOCIN 30 UNITS/LR 500 ML IV SCH ×2 (23:30)
[2016-09-11] MEDS ORDERED: CARBOPROST 250 MCG INJ IM PRN (23:30)
[2016-09-11] MEDS ORDERED: OXYTOCIN 30 UNITS/LR 500 ML IV PRN (23:30)
[2016-09-11] MEDS ORDERED: LIDOCAINE 1% (MPF) 30 ML INJ INJ PRN (23:30)
[2016-09-11] MEDS ORDERED: LACTATED RINGER'S 1,000 ML IV PRN (23:30)
[2016-09-11] MEDS ORDERED: IBUPROFEN 600 MG TAB PO PRN (23:30)
[2016-09-11] MEDS ORDERED: METHYLERGONOVINE 0.2 MG INJ IM PRN (23:30)
[2016-09-11] MEDS ORDERED: MISOPROSTOL 200 MCG TAB PR PRN (23:30)
[2016-09-12] VITALS (8 sets, daily range): BP systolic 101–129; BP diastolic 56–83; PULSE 60–69; RESP 16–19
[2016-09-12] MEDS: MISOPROSTOL 25 MCG CAPSULE PO PRN ×2 (02:37→06:44)
[2016-09-12] MEDS: MAGNESIUM SULFATE 20 GM/500 ML 500 ML IV SCH ×3 (03:55→19:00)
--- NOTE | 2016-09-12 05:52 | PN ---
Date/Time of Note Date/Time of Note DATE: 09/12/16 TIME: 05:44 OB Subjective Subjective Subjective 41 Year-old with SIUP at 36 3/7 weeks with preeclampsia admitted for close observation. She has been receiving her care with Dr. Gracia. She states good movement. She denies nausea, vomiting, shortness of breath, chest pain, headache, visual changes, vaginal bleeding or LOF. OB Objective Objective Objective General: Patient appears well, alert and oriented, NAD, appropriate mood and affect ABD: gravid, soft, non-tender. Back: No CVA tenderness (B/L) LE: No clubbing, cyanosis, edema, thigh or calf tenderness bilaterally FHT: 140 bpm , moderate variability with acceleration, no deceleration-category I Contractions: Occasional SVE: /60/-3/ceph/intact membrane OB Assessment/Plan Other plan: 41 Year-old with SIUP at 36 3/7 weeks with preeclampsia with severe features. FHR: No sign of metabolic acidosis- Category I. Continuous EFM , toco. CBC: nml, elevated AST, ALT, uric acid: 6.9, 24 hup: 969. She has received BMZ x2, currently on mag sulfate and labetalol 200 mg BID. I have discussed pt over the phone with Dr. Daniels who recommend delivery. Cytotec 50 mcg PO Q4 hrs ordered. Please see the order for detail. F/U by Dr. Gracia. PERNELL ISRAEL Sep 12, 2016 05:52
[2016-09-12] MEDS ORDERED: OXYTOCIN 30 UNITS/LR 500 ML IV SCH (09:00)
[2016-09-12] MEDS: LABETALOL 100 MG TAB PO SCH (10:30)
[2016-09-12] MEDS: LACTATED RINGER'S 1,000 ML IV SCH (13:05)
--- NOTE | 2016-09-12 14:18 | LDN ---
Date/Time of Note Date/Time of Note DATE: 09/12/16 TIME: 14:13 Delivery Summary Normal spontaneous vaginal delivery of a baby girl from OA position shoulders delivered without any difficulty rest of the baby's body follow cord clamped after stopped pulsation placenta is spontaneous expulsion inspected 10% abruption with a blood clot approximately 3 x 4 cm placenta sent to pathology estimated blood loss 250 cc inspection of perineum and vagina no laceration postdelivery uterus firm. Weeks of Gestation 36 weeks 06/02 in labor complicated with PIH Placenta Delivered: Spontaneously Meconium: none Episiotomy: No Laceration repair: None Anesthesia type: None Estimated blood loss: 250 Sponge & Needle done & correct: Yes All needle counts correct: Yes Any foreign bodies felt in the: No Problems: Delivery Information Sex Sex: female Apgars 1 Minute: 9 5 Minute: 9 Suctioning Nose & mouth suctioned at geoff: Yes Delee suction performed: No Umbilical Cord Umbilical cord with: 3 Vessels Cord presentations: no nuchal cord Cord Blood was obtained: Yes ANALI DOBBINS MD Sep 12, 2016 14:18
[2016-09-12] MEDS: OXYTOCIN 30 UNITS/LR 500 ML IV SCH ×2 (17:19→22:02)
[2016-09-12] MEDS ORDERED: LANOLIN 7 GM TUBE TOP PRN (17:30)
[2016-09-12] MEDS ORDERED: BENZOCAINE 20% 56 ML SPRAY TOP PRN (17:30)
[2016-09-12] MEDS ORDERED: WITCH HAZEL/GLYCERIN PAD PR PRN (17:30)
[2016-09-12] MEDS ORDERED: OXYCODONE/ASPIRIN (4.88/325) TAB PO PRN ×2 (17:30)
[2016-09-12] MEDS ORDERED: DIBUCAINE 1% 30 GM OINT PR PRN (17:30)
[2016-09-12] MEDS ORDERED: ACETAMINOPHEN/CODEINE #3 TAB PO PRN ×2 (17:30)
[2016-09-12] MEDS ORDERED: ACETAMINOPHEN 325 MG TAB PO PRN (17:30)
[2016-09-12] MEDS ORDERED: ONDANSETRON 4 MG INJ IV PRN (17:30)
[2016-09-12] MEDS: IBUPROFEN 600 MG TAB PO SCH ×2 (17:42→23:24)
[2016-09-12] MEDS: SENNA/DOCUSATE NA (8.6MG/50MG) TAB PO SCH (21:00)
[2016-09-13] VITALS (12 sets, daily range): BP systolic 111–126; BP diastolic 53–87; PULSE 62–83; RESP 17–18
[2016-09-13] MEDS: OXYTOCIN 30 UNITS/LR 500 ML IV SCH (02:29)
[2016-09-13] MEDS: MAGNESIUM SULFATE 20 GM/500 ML 500 ML IV SCH (02:31)
[2016-09-13] MEDS: IBUPROFEN 600 MG TAB PO SCH ×4 (05:34→23:48)
[2016-09-13 08:32] LABS: ADD SCAN DIFF NO
[2016-09-13 08:37] LABS: BASOPHILS % 0.2 % (0.0-2.0); EOSINOPHILS # 0.1 10^3/ul (0.0-0.5); EOSINOPHILS % 0.9 % (0.0-7.0); HEMOGLOBIN 10.3 g/dl (12.0-16.0); LYMPHOCYTES # 2.1 10^3/ul (0.8-2.9); LYMPHOCYTES % 20.7 % (15.0-51.0); MEAN CORPUSCULAR HEMOGLOBIN 31.2 pg (29.0-33.0); MEAN CORPUSCULAR HGB CONC 33.2 g/dl (32.0-37.0); MEAN CORPUSCULAR VOLUME 93.9 fl (82.0-101.0); MEAN PLATELET VOLUME 11.4 fl (7.4-10.4); MONOCYTE # 0.7 10^3/ul (0.3-0.9); MONOCYTES % 7.2 % (0.0-11.0); NEUTROPHIL # 7.3 10^3/ul (1.6-7.5); NEUTROPHILS % 70.5 % (39.0-77.0); PLATELET COUNT 211 10^3/UL (140-415); WHITE BLOOD COUNT 10.3 10^3/ul (4.8-10.8)
[2016-09-13] MEDS: SENNA/DOCUSATE NA (8.6MG/50MG) TAB PO SCH ×2 (10:25→20:35)
--- NOTE | 2016-09-13 12:55 | PN ---
Date/Time of Note Date/Time of Note DATE: 09/13/16 TIME: 12:54 OB Subjective Subjective Subjective Post normal vaginal delivery day 1 Afebrile vital signs stable abdomen soft uterus firm lochia normal extremity normal Laboratory Tests Test 09/12/16 13:00 09/12/16 17:40 09/13/16 00:51 09/13/16 08:06 Magnesium Level 7.7mg/dl 7.3mg/dl 5.7mg/dl White Blood Count 10.310^3/ul Red Blood Count 3.3010^6/ul Hemoglobin 10.3g/dl Hematocrit 31.0% Mean Corpuscular Volume 93.9fl Mean Corpuscular Hemoglobin 31.2pg Mean Corpuscular Hemoglobin Concent 33.2g/dl Red Cell Distribution Width 14.0% Platelet Count 27004^3/UL Mean Platelet Volume 11.4fl Neutrophils % 70.5% Lymphocytes % 20.7% Monocytes % 7.2% Eosinophils % 0.9% Basophils % 0.2% Nucleated Red Blood Cells % 0.0/100WBC Neutrophils # 7.310^3/ul Lymphocytes # 2.110^3/ul Monocytes # 0.710^3/ul Eosinophils # 0.110^3/ul Basophils # 0.010^3/ul Nucleated Red Blood Cells # 0.010^3/ul Current Medications Medications (Trade) Dose Ordered Sig/Leydi Route PRN Reason Start Time Stop Time Status Last Admin Dose Admin Lactated Ringer's (Lr) 1,000 ml @ 125 mls/hr Q8H IV* 09/06/16 19:00 09/06/16 20:22 DC 09/06/16 19:04 Betamethasone Acet/Betameth SodPhos ([place]elestone Soluspan) 12 mg Q12H IM 09/06/16 19:00 09/07/16 07:01 DC 09/07/16 07:02 Labetalol HCl 20 mg 20 mg STK-MED ONCE .ROUTE 09/06/16 20:01 09/06/16 20:02 DC Magnesium Sulfate 100 ml @ ud STK-MED ONCE .ROUTE 09/06/16 20:01 09/06/16 20:02 DC Lactated Ringer's 1,000 ml @ 125 mls/hr Q8H IV 09/06/16 20:11 09/07/16 00:02 DC 09/06/16 19:24 Dextrose/Lactated Ringer's (D5-Lr) 1,000 ml @ 125 mls/hr Q8H IV 09/06/16 20:11 09/07/16 00:03 DC Lidocaine 30 ml 30 ml ONCE PRN INJ EPISIOTOMY/TEARING 09/06/16 20:30 09/07/16 00:02 DC Oxytocin/Lactated Ringer's 500 ml @ 125 mls/hr ONCE -MAY REPEAT X1 IV 09/06/16 20:30 09/07/16 00:03 DC Oxytocin/Lactated Ringer's 500 ml @ 125 mls/hr ONCE IV 09/06/16 20:30 09/07/16 00:03 DC Ibuprofen (Motrin) 600 mg ONCE PRN PO Mild Pain (Pain Score 1-3) 09/06/16 20:30 09/07/16 00:03 DC Acetaminophen/ Codeine Phosphate 2 tab 2 tab ONCE PRN PO Moderate to Severe Pain (4-10) 09/06/16 20:30 09/07/16 00:03 DC Lactated Ringer's 1,000 ml @ 2,000 mls/hr Q30M PRN IV PRE-EPIDURAL BOLUS 09/06/16 20:14 09/07/16 00:03 DC Oxytocin/Lactated Ringer's 500 ml @ 0 mls/hr ONCE PRN IV For Hemorrhage Management 09/06/16 20:30 09/07/16 00:03 DC Methylergonovine Maleate (Methergine) 0.2 mg ONCE PRN IM VAGINAL BLEEDING 09/06/16 20:30 09/07/16 00:04 DC Carboprost Tromethamine (Hemabate) 250 mcg ONCE PRN IM VAGINAL BLEEDING 09/06/16 20:30 09/07/16 09:43 DC Misoprostol 1000 mcg 1,000 mcg ONCE PRN [place] VAGINAL BLEEDING 09/06/16 20:30 09/07/16 00:04 DC Magnesium Sulfate 100 ml @ 200 mls/hr ONCE IV 09/06/16 20:30 09/06/16 20:59 DC 09/06/16 20:09 Magnesium Sulfate (Magnesium Sulfate 20 Gm/500 ml) 500 ml @ 50 mls/hr Q10H IV 09/06/16 20:11 09/08/16 07:00 DC 09/08/16 02:16 Calcium Gluconate (Ca Gluc) 1 gm ONCE PRN IV FOR MAGNESIUM TOXICITY 09/06/16 20:30 09/12/16 17:22 DC Labetalol HCl (Labetalol) 20 mg ONCE ONCE IV 09/06/16 20:30 09/06/16 20:31 DC 09/06/16 20:06 Labetalol HCl (Labetalol) 20 mg Q10M PRN IV ELEVATED BLOOD PRESSURE 09/06/16 20:30 09/07/16 00:04 DC 09/06/16 21:25 Acetaminophen (Tylenol Tab) 650 mg Q4H PRN PO PAIN AND OR ELEVATED TEMP 09/06/16 20:30 09/07/16 00:03 DC Prenat Multivit/ [place]/Iron/Folic Ac () 1 tab DAILY PO 09/07/16 09:00 09/11/16 23:17 DC 09/10/16 08:57 Acetaminophen (Tylenol Tab) 650 mg Q4H PRN PO PAIN AND OR ELEVATED TEMP 09/07/16 00:00 09/12/16 17:22 DC 09/08/16 01:09 Labetalol HCl 200 mg 200 mg BID PO 09/07/16 01:00 09/07/16 10:27 DC 09/07/16 01:23 Lactated Ringer's (Lr) 1,000 ml @ 75 mls/hr [id number] IV 09/07/16 05:00 09/08/16 21:15 DC 09/08/16 08:23 Prenat Multivit/ [place]/Iron/Folic Ac () 1 tab DAILY PO 09/07/16 10:00 UNV Labetalol HCl (Normodyne) 200 mg BID PO 09/07/16 10:27 09/07/16 20:02 DC 09/07/16 10:34 Al Hydrox/Mg Hydrox/Simethicone (Mag-Al Plus) 30 ml Q4H PRN PO GASTROINTESTINAL UPSET 09/07/16 17:30 09/12/16 17:22 DC 09/10/16 19:40 Labetalol HCl (Normodyne) 200 mg BID PO 09/07/16 21:00 09/10/16 20:59 DC 09/10/16 08:57 Labetalol HCl 200 mg 200 mg Q8 PO 09/10/16 22:00 09/11/16 18:25 DC 09/11/16 06:28 Magnesium Sulfate 100 ml @ 200 mls/hr ONCE ONCE IVPB 09/10/16 23:30 09/10/16 23:59 DC 09/10/16 23:28 Magnesium Sulfate 500 ml @ 50 mls/hr Q10H IV 09/10/16 23:30 09/12/16 19:04 DC 09/12/16 13:09 Lactated Ringer's (Lr) 1,000 ml @ 75 mls/hr [id number] IV 09/10/16 23:30 09/12/16 17:22 DC 09/12/16 13:05 Labetalol HCl (Normodyne) 200 mg BID PO 09/11/16 21:00 09/12/16 17:22 DC 09/12/16 10:30 Labetalol HCl (Labetalol) 20 mg ONCE ONCE IV 09/11/16 21:00 09/11/16 21:01 DC 09/11/16 21:01 Misoprostol (Cytotec 25 Mcg Capsule) 50 mcg Q4 PRN PO CERVICAL RIPENING 09/11/16 22:00 09/12/16 17:22 DC 09/12/16 06:44 Butorphanol Tartrate (Stadol) 1 mg Q2H PRN IV PAIN 09/11/16 23:30 09/12/16 17:22 DC Butorphanol Tartrate (Stadol) 2 mg Q2H PRN IV PAIN 09/11/16 23:30 09/12/16 17:22 DC 09/12/16 12:31 Lidocaine 30 ml 30 ml ONCE PRN INJ EPISIOTOMY/TEARING 09/11/16 23:30 09/12/16 17:22 DC Oxytocin/Lactated Ringer's 500 ml @ 125 mls/hr ONCE -MAY REPEAT X1 IV 09/11/16 23:30 09/12/16 17:22 DC 09/12/16 14:19 Oxytocin/Lactated Ringer's 500 ml @ 125 mls/hr ONCE IV 09/11/16 23:30 09/12/16 17:22 DC Ibuprofen 600 mg 600 mg ONCE PRN PO Mild Pain (Pain Score 1-3) 09/11/16 23:30 09/12/16 17:23 DC Lactated Ringer's 1,000 ml @ 2,000 mls/hr Q30M PRN IV PRE-EPIDURAL BOLUS 09/11/16 23:30 09/12/16 17:23 DC Oxytocin/Lactated Ringer's 500 ml @ 0 mls/hr ONCE PRN IV For Hemorrhage Management 09/11/16 23:30 09/12/16 17:23 DC Methylergonovine Maleate (Methergine) 0.2 mg ONCE PRN IM VAGINAL BLEEDING 09/11/16 23:30 09/12/16 17:23 DC Carboprost Tromethamine (Hemabate) 250 mcg ONCE PRN IM VAGINAL BLEEDING 09/11/16 23:30 09/12/16 17:23 DC Misoprostol 1000 mcg 1,000 mcg ONCE PRN [place] VAGINAL BLEEDING 09/11/16 23:30 09/12/16 17:25 DC Oxytocin/Lactated Ringer's 500 ml @ 0 mls/hr TITRATE IV 09/12/16 09:00 09/12/16 17:23 DC 09/12/16 10:18 Oxytocin/Lactated Ringer's 500 ml @ 125 mls/hr Q4H IV 09/12/16 17:19 09/13/16 01:18 DC 09/13/16 02:29 Ibuprofen (Motrin) 600 mg Q6 PO 09/12/16 18:00 09/13/16 11:45 Acetaminophen (Tylenol Tab) 650 mg Q4H PRN PO PAIN LEVEL 1-5 09/12/16 17:30 Acetaminophen/ Codeine Phosphate (Tylenol No.3) 1 tab Q4H PRN PO PAIN LEVEL 1-5 09/12/16 17:30 Acetaminophen/ Codeine Phosphate (Tylenol No.3) 2 tab Q4H PRN PO PAIN LEVEL 6-10 09/12/16 17:30 Oxycodone/Aspirin (Percodan) 1 tab Q3H PRN PO PAIN LEVEL 1-5 09/12/16 17:30 Oxycodone/Aspirin (Percodan) 2 tab Q3H PRN PO PAIN LEVEL 6-10 09/12/16 17:30 Ondansetron HCl (Zofran Inj) 4 mg Q6H PRN IV NAUSEA AND/OR VOMITING 09/12/16 17:30 Senna/Docusate Sodium (Senokot-S) 1 tab BID PO 09/12/16 21:00 09/13/16 10:25 [place]/ Glycerin (Tucks Pads) 1 pad BEDSIDE MEDICATION PRN [place] HEMORRHOID/EPISIOTMY PAIN 09/12/16 17:30 09/12/16 21:00 Benzocaine (Dermoplast [place]) 1 spray BEDSIDE MEDICATION PRN TOP HEMORRHOID/EPISIOTMY PAIN 09/12/16 17:30 09/12/16 21:02 Dibucaine (Nupercainal) 1 applic BEDSIDE MEDICATION PRN [place] HEMORRHOID/EPISIOTMY PAIN 09/12/16 17:30 Lanolin ([id number]) 1 applic BEDSIDE MEDICATION PRN TOP BEDSIDE FOR ELVI TO NIPPLES 09/12/16 17:30 09/12/16 21:01 Measles/Mumps/ Rubella Vaccine Live 0.5 ml 0.5 ml ONCE ONCE SC* 09/14/16 09:00 09/14/16 09:01 Magnesium Sulfate (Magnesium Sulfate 20 Gm/500 ml) 500 ml @ 25 mls/hr Q20H IV 09/12/16 19:00 09/13/16 06:33 DC 09/13/16 02:31 ANALI DOBBINS MD Sep 13, 2016 12:55
[2016-09-14 04:00] VITALS: BP 118/71; PULSE 70; RESP 18
[2016-09-14] MEDS: IBUPROFEN 600 MG TAB PO SCH ×2 (05:36→12:39)
[2016-09-14 08:45] VITALS: BP 166/99; PULSE 76; RESP 18
[2016-09-14] MEDS ORDERED: MEASLES,MUMPS,RUBELLA VACCINE INJ SC* ONE (09:00)
[2016-09-14] MEDS: SENNA/DOCUSATE NA (8.6MG/50MG) TAB PO SCH (09:33)
[2016-09-14 10:15] VITALS: BP 167/93; PULSE 80; RESP 18
--- NOTE | 2016-09-14 11:09 | DS ---
Date/Time of Note Date/Time of Note DATE: 09/14/16 TIME: 11:01 Obstetrical Discharge Record Final Diagnosis Final Diagnosis: not delivered Other Final Diagnosis Intrauterine over 36 weeks and 4 days. Preeclampsia. Spontaneous vaginal delivery Vaginal Delivery Obstetrical Delivery: Spontaneous Other Delivery information Current Medications Medications (Trade) Dose Ordered Sig/Leydi Route PRN Reason Start Time Stop Time Status Last Admin Dose Admin Lactated Ringer's (Lr) 1,000 ml @ 125 mls/hr Q8H IV* 09/06/16 19:00 09/06/16 20:22 DC 09/06/16 19:04 Betamethasone Acet/Betameth SodPhos (Celestone Soluspan) 12 mg Q12H IM 09/06/16 19:00 09/07/16 07:01 DC 09/07/16 07:02 Labetalol HCl 20 mg 20 mg STK-MED ONCE .ROUTE 09/06/16 20:01 09/06/16 20:02 DC Magnesium Sulfate 100 ml @ ud STK-MED ONCE .ROUTE 09/06/16 20:01 09/06/16 20:02 DC Lactated Ringer's 1,000 ml @ 125 mls/hr Q8H IV 09/06/16 20:11 09/07/16 00:02 DC 09/06/16 19:24 Dextrose/Lactated Ringer's (D5-Lr) 1,000 ml @ 125 mls/hr Q8H IV 09/06/16 20:11 09/07/16 00:03 DC Lidocaine 30 ml 30 ml ONCE PRN INJ EPISIOTOMY/TEARING 09/06/16 20:30 09/07/16 00:02 DC Oxytocin/Lactated Ringer's 500 ml @ 125 mls/hr ONCE -MAY REPEAT X1 IV 09/06/16 20:30 09/07/16 00:03 DC Oxytocin/Lactated Ringer's 500 ml @ 125 mls/hr ONCE IV 09/06/16 20:30 09/07/16 00:03 DC Ibuprofen (Motrin) 600 mg ONCE PRN PO Mild Pain (Pain Score 1-3) 09/06/16 20:30 09/07/16 00:03 DC Acetaminophen/ Codeine Phosphate 2 tab 2 tab ONCE PRN PO Moderate to Severe Pain (4-10) 09/06/16 20:30 09/07/16 00:03 DC Lactated Ringer's 1,000 ml @ 2,000 mls/hr Q30M PRN IV PRE-EPIDURAL BOLUS 09/06/16 20:14 09/07/16 00:03 DC Oxytocin/Lactated Ringer's 500 ml @ 0 mls/hr ONCE PRN IV For Hemorrhage Management 09/06/16 20:30 09/07/16 00:03 DC Methylergonovine Maleate (Methergine) 0.2 mg ONCE PRN IM VAGINAL BLEEDING 09/06/16 20:30 09/07/16 00:04 DC Carboprost Tromethamine (Hemabate) 250 mcg ONCE PRN IM VAGINAL BLEEDING 09/06/16 20:30 09/07/16 09:43 DC Misoprostol 1000 mcg 1,000 mcg ONCE PRN [place] VAGINAL BLEEDING 09/06/16 20:30 09/07/16 00:04 DC Magnesium Sulfate 100 ml @ 200 mls/hr ONCE IV 09/06/16 20:30 09/06/16 20:59 DC 09/06/16 20:09 Magnesium Sulfate (Magnesium Sulfate 20 Gm/500 ml) 500 ml @ 50 mls/hr Q10H IV 09/06/16 20:11 09/08/16 07:00 DC 09/08/16 02:16 Calcium Gluconate (Ca Gluc) 1 gm ONCE PRN IV FOR MAGNESIUM TOXICITY 09/06/16 20:30 09/12/16 17:22 DC Labetalol HCl (Labetalol) 20 mg ONCE ONCE IV 09/06/16 20:30 09/06/16 20:31 DC 09/06/16 20:06 Labetalol HCl (Labetalol) 20 mg Q10M PRN IV ELEVATED BLOOD PRESSURE 09/06/16 20:30 09/07/16 00:04 DC 09/06/16 21:25 Acetaminophen (Tylenol Tab) 650 mg Q4H PRN PO PAIN AND OR ELEVATED TEMP 09/06/16 20:30 09/07/16 00:03 DC Prenat Multivit/ [place]/Iron/Folic Ac () 1 tab DAILY PO 09/07/16 09:00 09/11/16 23:17 DC 09/10/16 08:57 Acetaminophen (Tylenol Tab) 650 mg Q4H PRN PO PAIN AND OR ELEVATED TEMP 09/07/16 00:00 09/12/16 17:22 DC 09/08/16 01:09 Labetalol HCl 200 mg 200 mg BID PO 09/07/16 01:00 09/07/16 10:27 DC 09/07/16 01:23 Lactated Ringer's (Lr) 1,000 ml @ 75 mls/hr [id number] IV 09/07/16 05:00 09/08/16 21:15 DC 09/08/16 08:23 Prenat Multivit/ [employer]/Iron/Folic Ac () 1 tab DAILY PO 09/07/16 10:00 UNV Labetalol HCl (Normodyne) 200 mg BID PO 09/07/16 10:27 09/07/16 20:02 DC 09/07/16 10:34 Al Hydrox/Mg Hydrox/Simethicone (Mag-Al Plus) 30 ml Q4H PRN PO GASTROINTESTINAL UPSET 09/07/16 17:30 09/12/16 17:22 DC 09/10/16 19:40 Labetalol HCl (Normodyne) 200 mg BID PO 09/07/16 21:00 09/10/16 20:59 DC 09/10/16 08:57 Labetalol HCl 200 mg 200 mg Q8 PO 09/10/16 22:00 09/11/16 18:25 DC 09/11/16 06:28 Magnesium Sulfate 100 ml @ 200 mls/hr ONCE ONCE IVPB 09/10/16 23:30 09/10/16 23:59 DC 09/10/16 23:28 Magnesium Sulfate 500 ml @ 50 mls/hr Q10H IV 09/10/16 23:30 09/12/16 19:04 DC 09/12/16 13:09 Lactated Ringer's (Lr) 1,000 ml @ 75 mls/hr [id number] IV 09/10/16 23:30 09/12/16 17:22 DC 09/12/16 13:05 Labetalol HCl (Normodyne) 200 mg BID PO 09/11/16 21:00 09/12/16 17:22 DC 09/12/16 10:30 Labetalol HCl (Labetalol) 20 mg ONCE ONCE IV 09/11/16 21:00 09/11/16 21:01 DC 09/11/16 21:01 Misoprostol (Cytotec 25 Mcg Capsule) 50 mcg Q4 PRN PO CERVICAL RIPENING 09/11/16 22:00 09/12/16 17:22 DC 09/12/16 06:44 Butorphanol Tartrate (Stadol) 1 mg Q2H PRN IV PAIN 09/11/16 23:30 09/12/16 17:22 DC Butorphanol Tartrate (Stadol) 2 mg Q2H PRN IV PAIN 09/11/16 23:30 09/12/16 17:22 DC 09/12/16 12:31 Lidocaine 30 ml 30 ml ONCE PRN INJ EPISIOTOMY/TEARING 09/11/16 23:30 09/12/16 17:22 DC Oxytocin/Lactated Ringer's 500 ml @ 125 mls/hr ONCE -MAY REPEAT X1 IV 09/11/16 23:30 09/12/16 17:22 DC 09/12/16 14:19 Oxytocin/Lactated Ringer's 500 ml @ 125 mls/hr ONCE IV 09/11/16 23:30 09/12/16 17:22 DC Ibuprofen 600 mg 600 mg ONCE PRN PO Mild Pain (Pain Score 1-3) 09/11/16 23:30 09/12/16 17:23 DC Lactated Ringer's 1,000 ml @ 2,000 mls/hr Q30M PRN IV PRE-EPIDURAL BOLUS 09/11/16 23:30 09/12/16 17:23 DC Oxytocin/Lactated Ringer's 500 ml @ 0 mls/hr ONCE PRN IV For Hemorrhage Management 09/11/16 23:30 09/12/16 17:23 DC Methylergonovine Maleate (Methergine) 0.2 mg ONCE PRN IM VAGINAL BLEEDING 09/11/16 23:30 09/12/16 17:23 DC Carboprost Tromethamine (Hemabate) 250 mcg ONCE PRN IM VAGINAL BLEEDING 09/11/16 23:30 09/12/16 17:23 DC Misoprostol 1000 mcg 1,000 mcg ONCE PRN [place] VAGINAL BLEEDING 09/11/16 23:30 09/12/16 17:25 DC Oxytocin/Lactated Ringer's 500 ml @ 0 mls/hr TITRATE IV 09/12/16 09:00 09/12/16 17:23 DC 09/12/16 10:18 Oxytocin/Lactated Ringer's 500 ml @ 125 mls/hr Q4H IV 09/12/16 17:19 09/13/16 01:18 DC 09/13/16 02:29 Ibuprofen (Motrin) 600 mg Q6 PO 09/12/16 18:00 09/14/16 05:36 Acetaminophen (Tylenol Tab) 650 mg Q4H PRN PO PAIN LEVEL 1-5 09/12/16 17:30 Acetaminophen/ Codeine Phosphate (Tylenol No.3) 1 tab Q4H PRN PO PAIN LEVEL 1-5 09/12/16 17:30 Acetaminophen/ Codeine Phosphate (Tylenol No.3) 2 tab Q4H PRN PO PAIN LEVEL 6-10 09/12/16 17:30 Oxycodone/Aspirin (Percodan) 1 tab Q3H PRN PO PAIN LEVEL 1-5 09/12/16 17:30 Oxycodone/Aspirin (Percodan) 2 tab Q3H PRN PO PAIN LEVEL 6-10 09/12/16 17:30 Ondansetron HCl (Zofran Inj) 4 mg Q6H PRN IV NAUSEA AND/OR VOMITING 09/12/16 17:30 Senna/Docusate Sodium (Senokot-S) 1 tab BID PO 09/12/16 21:00 09/14/16 09:33 [place]/ Glycerin (Tucks Pads) 1 pad BEDSIDE MEDICATION PRN [place] HEMORRHOID/EPISIOTMY PAIN 09/12/16 17:30 09/12/16 21:00 Benzocaine (Dermoplast [place]) 1 spray BEDSIDE MEDICATION PRN TOP HEMORRHOID/EPISIOTMY PAIN 09/12/16 17:30 09/12/16 21:02 Dibucaine (Nupercainal) 1 applic BEDSIDE MEDICATION PRN [place] HEMORRHOID/EPISIOTMY PAIN 09/12/16 17:30 Lanolin ([id number]) 1 applic BEDSIDE MEDICATION PRN TOP BEDSIDE FOR ELVI TO NIPPLES 09/12/16 17:30 09/12/16 21:01 Measles/Mumps/ Rubella Vaccine Live 0.5 ml 0.5 ml ONCE ONCE SC* 09/14/16 09:00 09/14/16 09:01 DC Magnesium Sulfate (Magnesium Sulfate 20 Gm/500 ml) 500 ml @ 25 mls/hr Q20H IV 09/12/16 19:00 09/13/16 06:33 DC 09/13/16 02:31 Complications Complications: less than 7 at 5 mins Complications Augmentation: No Induction: No Rupture of Membranes: No Gestational Age at Rupture Admitted 36 weeks and 4 days in active labor Condition on Discharge Physical Assessment Last Vitals: day 2 this patient is doing fairly well, her blood pressure is still elevated but will continue with labetalol. she is on labetalol 200 mg twice a day she was on mag sulfate which was discontinued we will discharge her on on labetalol 200 mg twice daily to be followed soon in the clinic for adjustment of antihypertension medication Voiding: Yes Bowel Movement: Yes Breast: Soft, non-tender Fundus: Firm Abdomen and Incision: Post day 2 Doing Well Afebrile Ambulatory Chest Clear Breasts are soft , Nipples are intact Abdomen is soft Fundus is firm Moderate amount of lochia No calf tenderness No ankle edema Calf Tenderness: No Patient Condition: Stable TITA GARCIA MD Sep 14, 2016 11:08
== END 2016-09-14 13:00 | disposition home or self-care (01) | DRG 775 ==
LOC: OBT 16:00 → L-D 16:02 → OBT 18:46 → L-D 23:15 → OBG 09-07 02:12 → L-D 09-11 09:59 → PP1 09-12 16:52
PROVIDERS: ADMIT Obstetrics & Gynecology; ATTEND Obstetrics & Gynecology
PROC: 10E0XZZ Delivery of Products of Conception, External Approach (ICD-10-PCS; principal; 2016-09-12)
DX: O14.14 Severe pre-eclampsia complicating childbirth (principal); Z37.0 Single live birth; Z3A.35 35 weeks gestation of pregnancy
CPT/HCPCS: 76815; 76818; 80053; 80069; 80076; 81001; 83615; 83735; 84156; 84560; 85025; 85362; 85384; 85610; 85730; 86592; 86900; 86901; 87340; 88307; 99464; G0463; J0595; J0702; J2590; J3475; J7120; J7121